=== PATIENT | male | born 1950 | race African-American/Black ===

== ENCOUNTER 2017-12-24 07:15 | Emergency (ER) | payer OTHER ==
[2017-12-24 08:48] LABS: Bilirubin Negative (Negative); Blood, Urine Negative (Negative); Clarity CLEAR (Clear); Glucose, Urine (Dipstick) Negative (Negative); Leukocyte Negative (Negative); Nitrite Negative (Negative); Protein, Urine (Dipstick) 30 mg/dL (Neg-Trace); Specific Gravity, Urine 1.011 (1.002-1.036); Urobilinogen 0.2 mg/dL (0.2-1.0)
[2017-12-24 08:50] LABS: Bacteria/HPF None Seen HPF (None Seen); Hyaline Casts/LPF 0-3 HYALINE CAST LPF (0-3 Hyaline); Pathc Cast-AUWi Flag 0.29 (0-2.49); Squamous Epithelial None Seen HPF (0-3); WBC/HPF 0-3 HPF (0-3)
[2017-12-24 09:09] LABS: ALT (SGPT) 25 U/L (8-55); AST (SGOT) 18 U/L (5-34); Alkaline Phosphatase 31 U/L (40-150); Anion Gap 15 mmol/L (10-20); BUN (Urea Nitrogen) 111 mg/dL (8.4-25.7); Bilirubin, Total 0.3 mg/dL (0.2-1.2); CK (CPK) 49 U/L (30-200); Calc. Creatinine Clearance 0 mL/min (70-130); Calcium 7.8 mg/dL (7.8-10.44); Carbon Dioxide 13 mmol/L (23-31); Chloride 114 mmol/L (98-107); Estimated GFR-MDRD 18; Globulin 2.1 g/dL (2.4-3.5); Glucose 197 mg/dL (80-115); Lipase 120 U/L (8-78); Potassium 6.5 mmol/L (3.5-5.1); Protein, Total 5.1 g/dL (5.8-8.1); Sodium 135 mmol/L (136-145)
[2017-12-24 09:13] LABS: CKMB 1.7 ng/mL (0-6.6)
[2017-12-24 09:29] LABS: Hemoglobin 4.6 g/dL (14.0-18.0); Mean Corpuscular HGB CONC 31.4 g/dL (32.0-36.0); Mean Corpuscular Hemoglobin 25.8 pg (27.0-31.0); Mean Corpuscular Volume 82.3 fl (80.0-94.0); Mean Platelet Volume 7.8 fL (7.4-10.4); Platelet Count 251 thou/uL (130-400); RBC Distribution Width 16.5 % (11.5-14.5); Red Blood Cell (RBC) Count 1.76 mill/uL (4.70-6.10); Reflex for Review?? YES; White Blood Cell (WBC) Count 21.1 thou/uL (4.8-10.8)
[2017-12-24 09:46] LABS: Band 1 % (5-11); Hypochromia SLIGHT = 6-15 cells (100X) (0-5/hpf); Lymphocytes 19 % (21-51); MDiff Complete? YES; Monocytes 1 % (0-10); Neutrophil 79 % (42-75); PLT Morphology Comment Appears Adequate; Polychromasia MODERATE = 3-4 cells (100X) (0-2/hpf)
[2017-12-24] MEDS ORDERED: Insulin Regular 300 UNITS/3 ML VIAL ONE (10:00)
[2017-12-24] MEDS ORDERED: Dextrose 50% Abboject 50 ML SYRINGE ONE (10:00)
[2017-12-24] MEDS ORDERED: Calcium Chloride 1 GM/10 ML Abboject SYRINGE ONE (10:00)
[2017-12-24] MEDS ORDERED: Albuterol Sulfate 2.5 mg/0.5 ml Neb ONE (10:13)
[2017-12-24] MEDS ORDERED: Albuterol Sulfate 2.5 mg/3 ml Neb ONE (10:13)
--- NOTE | 2017-12-24 10:18 | RAD ---
PORTABLE CHEST: Date: 12/24/17 HISTORY: Chest pain, hypotension. FINDINGS: Heart size appears slightly enlarged. Mediastinal structures are unremarkable. Lungs are clear of inf iltrates. There are no signs of failure. IMPRESSION: Mild cardiomegaly. POS: [facility]
[2017-12-24] MEDS ORDERED: Piperacillin/Tazobactam 3.375 GM VIAL ONE (10:55)
[2017-12-24] MEDS ORDERED: Sodium Chloride 0.9% 100 ML ONE (10:55)
[2017-12-24 11:18] LABS: PTT 57.7 SEC (22.9-36.1); Prothrombin Time 47.7 SEC (12.0-14.7)
[2017-12-24 11:20] LABS: INR-International Normal Ratio 4.8
[2017-12-24] MEDS ORDERED: Pantoprazole 80 MG, Admixture Fee 1 EACH in Sodium Chloride 0.9% 100 ML IVP SCH (11:45)
[2017-12-24] MEDS ORDERED: Pantoprazole 40 MG VIAL ONE (11:58)
[2017-12-24] MEDS ORDERED: Phytonadione 10 MG/ML AMP SLOW IVP SCH (12:00)
[2017-12-24] MEDS ORDERED: ADMIXTURE FEE IV SCH (12:00)
[2017-12-24] MEDS ORDERED: HUMAN PROTHROMBIN COMPLX IV SCH (12:00)
[2017-12-24] MEDS ORDERED: Vancomycin HCl 1 GM in Premix Bag 1 BAG IVPB SCH (12:00)
--- NOTE | 2017-12-24 13:04 | CT ---
CT OF ABDOMEN AND PELVIS PERFORMED WITHOUT CONTRAST ENHANCEMENT: Date: 12/24/17 HISTORY: Abdominal pain, hypotension, difficulty breathing. FINDINGS: The lung bases are clear of infiltrative process. The liver and spleen are normal in size. There is some increased attenuation associated with the sple en, which could represent calcification, possibly an old area of trauma, not felt to be of any acute significance. Pancreas and gallbladder regions are unremarkable. Right and left adrenal glands, and right and left kidneys are normal in size. The aorta is slightly e ctatic, but not aneurysmal. No evidence of bowel obstruction. There is some air within the subcutaneo us fat anteriorly, presumably this is on the basis of injections. CT of pelvis was performed without contrast enhancement. No evidence of adenopathy, mass, or free flu id. The appendix appears unremarkable. IMPRESSION: No acute abnormalities of the abdomen or pelvis. POS: [facility]
== END 2017-12-24 14:27 | disposition short-term general hospital (02) ==
LOC: ERS 07:15
DX: K92.2 Gastrointestinal hemorrhage, unspecified (principal); E87.5 Hyperkalemia; D64.9 Anemia, unspecified; I13.0 Hypertensive heart and chronic kidney disease with heart failure and stage 1 through stage 4 chronic kidney disease, or unspecified chronic kidney disease; E11.22 Type 2 diabetes mellitus with diabetic chronic kidney disease; N18.9 Chronic kidney disease, unspecified; I50.9 Heart failure, unspecified; K74.60 Unspecified cirrhosis of liver; E11.40 Type 2 diabetes mellitus with diabetic neuropathy, unspecified; Z79.82 Long term (current) use of aspirin; Z79.899 Other long term (current) drug therapy; Z79.4 Long term (current) use of insulin; Z79.01 Long term (current) use of anticoagulants
CPT/HCPCS: 36415; 36430; 71045; 74176; 80053; 81003; 81015; 82274; 82553; 83690; 84484; 85025; 85060; 85610; 85730; 86850; 86900; 86901; 87040; 87086; 93005; 94640; 94760; 96361; 96365; 96366; 96367; 96374; 96375; 96376; C9113; C9132; J1815; J2543; J3370; J3430; J7050; J7611; P9016

== ENCOUNTER 2018-02-03 19:51 | Emergency (ER) | payer OTHER ==
[2018-02-03 21:06] LABS: #Eosinphils 0.4 thou/uL (0.0-0.7); #Lymphocytes 1.4 thou/uL (1.20-3.40); #Monocytes 0.8 thou/uL (0.11-0.59); #Neutrophils 6.4 thou/uL (1.40-6.50); %Basophils 0.3 % (0.0-1.0); %Lymphocytes 15.7 % (21.0-51.0); %Monocytes 8.6 % (0.0-10.0); %Neutrophils 71.4 % (42.0-75.0); Hemoglobin 5.2 g/dL (14.0-18.0); Mean Corpuscular HGB CONC 32.6 g/dL (32.0-36.0); Mean Corpuscular Hemoglobin 27.2 pg (27.0-31.0); Mean Corpuscular Volume 83.5 fL (78.0-98.0); Mean Platelet Volume 7.5 fL (7.4-10.4); Platelet Count 217 thou/uL (130-400); RBC Distribution Width 15.8 % (11.5-14.5); Red Blood Cell (RBC) Count 1.91 mill/uL (4.70-6.10); White Blood Cell (WBC) Count 8.9 thou/uL (4.8-10.8)
[2018-02-03 21:15] LABS: ALT (SGPT) 24 U/L (8-55); AST (SGOT) 21 U/L (5-34); Albumin 3.4 g/dL (3.4-4.8); Alkaline Phosphatase 70 U/L (40-150); Anion Gap 14 mmol/L (10-20); BUN (Urea Nitrogen) 48 mg/dL (8.4-25.7); Bilirubin, Total 0.3 mg/dL (0.2-1.2); Calc. Creatinine Clearance 0 mL/min (70-130); Calcium 7.1 mg/dL (7.8-10.44); Carbon Dioxide 21 mmol/L (23-31); Chloride 110 mmol/L (98-107); Estimated GFR-MDRD 24; Globulin 2.7 g/dL (2.4-3.5); Glucose 180 mg/dL (80-115); Protein, Total 6.1 g/dL (5.8-8.1); Sodium 141 mmol/L (136-145)
[2018-02-03 21:30] LABS: INR-International Normal Ratio 2.3; PTT 40.6 SEC (22.9-36.1); Prothrombin Time 25.1 SEC (12.0-14.7)
[2018-02-03] MEDS ORDERED: Pantoprazole 80 MG, Admixture Fee 1 EACH in Sodium Chloride 0.9% 100 ML IVP SCH (21:30)
[2018-02-03] MEDS ORDERED: Pantoprazole 40 MG VIAL ONE (21:32)
--- NOTE | 2018-02-03 23:29 | CT ---
ABDOMEN CT WITHOUT CONTRAST PELVIC CT WITHOUT CONTRAST 02/03/18 COMPARISON: 12/24/17. HISTORY: Patient is here for GI bleed. TECHNIQUE: Abdomen and pelvic CT performed without contrast. Coronal reformatted images are submitted for interp retation. FINDINGS: ABDOMEN CT: Heart is enlarged. Minimal small bilateral pleural effusion with chronic changes in the lung bases. Limited evaluation of the solid organs by lack of IV contrast. Grossly, no solid organ abnormality. No gastrohepatic, retrocrural or periportal lymphadenopathy. There is evidence of fluid in the gallbladder fossa. No mesenteric mass, lymphadenopathy, free air or free fluid. Symmetric attenuation of the psoas muscles. Bilaterally, No obstructive uropathy. Limited evaluation of the alimentary canal. Gastric mucosal prominence likely due to inadequate diste ntion. Multiple normal caliber small bowel loops. Ileocecal junction is grossly unremarkable. Fecaliz ation of the terminal ileum likely due to incompetent ileocecal valve. Normal caliber appendix is not ed. The visualized colon is unremarkable. Evaluation is limited by lack of oral contrast. Stable hype rdensity in the spleen suggesting an area of hemorrhage or possible calcification PELVIC CT: No mass, lymphadenopathy, free air or free fluid. Unremarkable urinary bladder. Stable degenerative c hange of the lumbar spine. IMPRESSION: 1. No evidence of nephrolithiasis or obstructive uropathy. 2. Normal caliber appendix. 3. No evidence of colonic obstruction. Given patient's history, consider possible nuclear medici ne GI bleed scan. 4. Nonspecific fluid in the gallbladder fossa. Correlate clinically. Consider gallbladder ultras ound if clinically warranted. POS: [facility]
--- NOTE | 2018-02-04 12:46 | EKG ---
Test Reason : Blood Pressure : / mmHG Vent. Rate : 073 BPM Atrial Rate : 073 BPM P-R Int : 154 ms QRS Dur : 094 ms QT Int : 428 ms P-R-T Axes : 000 -04 -06 degrees QTc Int : 471 ms Normal sinus rhythm Left ventricular hypertrophy with repolarization abnormality Abnormal ECG Leftward axis Confirmed by SANIA APPIAH, VALERIO James ([id number]), fashion editor ORLANDO ESCAMILLA ([id number]) on 02/04/2018 12:45:55 PM Referred By: Confirmed By:VALERIO LUI MD
== END 2018-02-04 01:45 | disposition short-term general hospital (02) ==
LOC: ERS 19:51
DX: K92.2 Gastrointestinal hemorrhage, unspecified (principal); D64.9 Anemia, unspecified; I13.0 Hypertensive heart and chronic kidney disease with heart failure and stage 1 through stage 4 chronic kidney disease, or unspecified chronic kidney disease; E11.22 Type 2 diabetes mellitus with diabetic chronic kidney disease; N18.9 Chronic kidney disease, unspecified; I50.9 Heart failure, unspecified; E11.40 Type 2 diabetes mellitus with diabetic neuropathy, unspecified; Z79.899 Other long term (current) drug therapy; Z79.4 Long term (current) use of insulin; Z79.01 Long term (current) use of anticoagulants; I25.10 Atherosclerotic heart disease of native coronary artery without angina pectoris
CPT/HCPCS: 36430; 74176; 80053; 83690; 83735; 85025; 85610; 85730; 86850; 86900; 86901; 93005; 96365; 96366; 96376; C9113; J7050; P9016

== ENCOUNTER 2018-03-10 06:41 | Inpatient (IN) | payer OTHER ==
[2018-03-10 07:20] LABS: #Eosinphils 0.8 thou/uL (0.0-0.7); #Lymphocytes 1.9 thou/uL (1.20-3.40); #Monocytes 0.7 thou/uL (0.11-0.59); #Neutrophils 6.1 thou/uL (1.40-6.50); %Basophils 0.3 % (0.0-1.0); %Eosinophils 8.3 % (0.0-10.0); %Lymphocytes 19.8 % (21.0-51.0); %Neutrophils 64.7 % (42.0-75.0); Hemoglobin 9.4 g/dL (14.0-18.0); Mean Corpuscular HGB CONC 32.2 g/dL (32.0-36.0); Mean Corpuscular Hemoglobin 29.3 pg (27.0-31.0); Mean Corpuscular Volume 91.2 fL (78.0-98.0); Mean Platelet Volume 7.9 fL (7.4-10.4); Platelet Count 191 thou/uL (130-400); RBC Distribution Width 16.2 % (11.5-14.5); Red Blood Cell (RBC) Count 3.21 mill/uL (4.70-6.10); White Blood Cell (WBC) Count 9.4 thou/uL (4.8-10.8)
[2018-03-10 07:28] LABS: INR-International Normal Ratio 1.1; PTT 31.5 SEC (22.9-36.1); Prothrombin Time 13.8 SEC (12.0-14.7)
[2018-03-10 07:45] LABS: ALT (SGPT) 27 U/L (8-55); AST (SGOT) 23 U/L (5-34); Albumin 3.8 g/dL (3.4-4.8); Alkaline Phosphatase 68 U/L (40-150); Anion Gap 18 mmol/L (10-20); BUN (Urea Nitrogen) 41 mg/dL (8.4-25.7); Bilirubin, Total 0.8 mg/dL (0.2-1.2); CK (CPK) 125 U/L (30-200); Calc. Creatinine Clearance 0 mL/min (70-130); Calcium 7.8 mg/dL (7.8-10.44); Carbon Dioxide 19 mmol/L (23-31); Chloride 112 mmol/L (98-107); Estimated GFR-MDRD 29; Globulin 2.9 g/dL (2.4-3.5); Glucose 90 mg/dL (80-115); Lipase 83 U/L (8-78); Potassium 3.9 mmol/L (3.5-5.1); Protein, Total 6.7 g/dL (5.8-8.1); Sodium 145 mmol/L (136-145)
[2018-03-10] MEDS ORDERED: Pantoprazole 40 MG VIAL ONE (08:18)
[2018-03-10 08:36] LABS: Bilirubin Negative (Negative); Blood, Urine Negative (Negative); Clarity CLEAR (Clear); Glucose, Urine (Dipstick) Negative (Negative); Leukocyte Negative (Negative); Nitrite Negative (Negative); Protein, Urine (Dipstick) 100 mg/dL (Neg-Trace); Urobilinogen 0.2 mg/dL (0.2-1.0); pH, Urine 7.5 (5.0-9.0)
[2018-03-10 08:38] LABS: Bacteria/HPF None Seen HPF (None Seen); Hyaline Casts/LPF 0-3 HYALINE CAST LPF (0-3 Hyaline); RBC/HPF None Seen HPF (0-3); Squamous Epithelial None Seen HPF (0-3); WBC/HPF None Seen HPF (0-3)
--- NOTE | 2018-03-10 08:45 | RAD ---
CHEST 1 VIEW: Date: 03/10/18 HISTORY: 67-year-old male with abdominal pain, upper GI bleed, black stools. COMPARISON: 12/24/17. FINDINGS: Cardiomegaly with mid bilateral vascular congestion and possibly mild interstitial edema. Slight blun ting of the costophrenic angles suggesting small effusions. IMPRESSION: Interval development of some bilateral vascular congestion, mild interstitial edema, and small pleura l effusions with cardiomegaly since 12/24/17. POS: [facility]
[2018-03-10 10:55] LABS: Troponin I 0.037 ng/mL (< 0.028)
[2018-03-10] MEDS ORDERED: Octreotide Acetate 50 MCG/ML AMP SC SCH (12:00)
[2018-03-10 12:31] VITALS: BMI 25.4
--- NOTE | 2018-03-10 13:17 | CON ---
DATE OF CONSULTATION: 03/10/2018 REASON FOR CONSULTATION: Melena. CONSULTING PHYSICIAN: Dr. Lloyd Bartlett. HISTORY OF PRESENT ILLNESS: Patient is a 67-year-old -[place] male with past medical history of chronic kidney disease with arteriovenous fistula placement (but not on hemodialysis yet), carpal tunnel syndrome, congestive heart failure, diabetes, hypertension, coronary artery disease, chronic hepatitis C (naive to treatment) and cirrhosis with the sequelae of ascites, presenting with complain ts of melena. He states that he has been having intermittent black stools that have been present for the last 2-3 months characterized primarily as 1-2 solid black bowel movements per day. With this m ost recent episode, he said that he was having normal stooling pattern until approximately 1 week ago when he again started having these solid black bowel movements. They were not associated with iron supplementation, taking Pepto-Bismol or dietary food intake. This was also associated with increased suprapubic abdominal pain characterized as a cramping type pain, nonradiating, intermittent and woul d reach a severity of approximately 5/10. There were no clear exacerbating factors, but it was allev iated with a medication that he was given at the hospital emergency room. Otherwise, he currently de nies any nausea, vomiting, fevers, chills, shortness of breath, chest pain, odynophagia, dysphagia, h ematemesis, hematochezia, or weight loss. Of note, he has been evaluated on two separate occasions in this hospital with very similar complaint s of darker colored stools and anemia. He was subsequently transferred to the [facility] in [place] for further evaluation given his incarcerated status. Records from those h ospitalizations are not available for review at this time; however, the patient did state that they d id go down with a camera and looked at his stomach and said that "everything was fine. They found no thing." REVIEW OF SYSTEMS: A 10-category review of systems was obtained with all responses negative except f or the pertinent positives as listed in the HPI. PAST MEDICAL HISTORY: As per HPI. PAST SURGICAL HISTORY: Kidney biopsy, arterial thrombectomy, arteriovenous fistula placement. FAMILY HISTORY: Denies any GI malignancies. SOCIAL HISTORY: Denies any alcohol, tobacco or illicit drug use. OUTPATIENT MEDICATIONS: Reviewed. ALLERGIES: No known drug allergies. PHYSICAL EXAMINATION: VITAL SIGNS: Pulse 79, blood pressure 174/90, temperature 98 degrees, respiratory rate 18, satting 9 8% on room air. GENERAL: Patient is lying in bed in no acute distress. Alert and oriented x4. NECK: Supple. No JVD noted. CARDIOVASCULAR: Regular rate and rhythm, no discernible murmurs, gallops or rubs. However, he did h ave a loud P2 sound on auscultation. RESPIRATORY: Clear to auscultation bilaterally with no discernible wheezes or rales, although there may have been some diminished breath sounds in the right lower lobe. ABDOMEN: Normoactive bowel sounds, soft, mild to moderate abdominal distention, mild tenderness to p alpation in the suprapubic region. EXTREMITIES: Trace bilateral lower extremity edema extending to mid babb. No cyanosis or clubbing. LABORATORY DATA: CBC with a white blood cell count of 9.4, hemoglobin 9.4, hematocrit 29.2, platelet s 191. Chemistry with sodium of 145, potassium 3.9, chloride 112, CO2 of 19, BUN 41, creatinine 2.65 , glucose 90, AST 23, ALT 27, alkaline phosphatase 68, total bilirubin 0.8, lipase 83, INR 1.1. Trop onin 0.03. BNP 1305. IMAGING DATA: Chest x-ray obtained on 03/10/2018 showed cardiomegaly with mild bilateral vascular co ngestion and possibly mild interstitial edema, slight blunting of the costophrenic angle suggesting s mall effusions. ASSESSMENT AND PLAN: The patient is a 67-year-old -[place] male with past medical history of chronic kidney disease status post AVF placement, carpal tunnel, congestive heart failure, diabetes, hypertension, coronary artery disease, chronic hepatitis C and cirrhosis with sequelae of ascites, p resenting with possible upper gastrointestinal bleeding. UPPER GI BLEEDING: The patient is presenting with a history of intermittent black colored stools thang t have been present for the last 2-3 months and has been noted to be associated with significant anem ia with prior evaluations in our ER. He was ultimately transferred to [facility] in [place] for evaluati on of the bleeding source with no records available for review; however, with his history of cirrhosi s, the current differential could include variceal bleeding, portal hypertensive gastropathy, arterio venous malformation, Dieulafoy lesion, peptic ulcer disease and/or GI malignancy (much less likely gi missael recent instrumentation per patient). However, upon further evaluation of his current labs and im aging, his current clinical picture is consistent with a possible congestive heart failure exacerbati on as evidenced by the interstitial edema on chest x-ray and the significantly elevated BNP with a lo ud P2 sound auscultated on cardiac exam, this is also concerning for congestive heart failure exacerb ation. Given the fact that he is having one solid black bowel movement per day, he is not necessaril y indicative of brisk upper gastrointestinal bleeding, so correction of his cardiac issues may take p riority over his GI issues for the current time. RECOMMENDATIONS: 1. We would continue to trend hemoglobin and hematocrit and transfuse as necessary to maintain an he moglobin and hematocrit of 7/21. 2. Continue to monitor clinically for signs of active gastrointestinal bleeding. 3. We would stabilize the patient's cardiac status with possible congestive heart failure exacerbati on prior to any endoscopic procedure. 4. Would make patient n.p.o. at midnight tonight for possible endoscopy tomorrow. 5. We would continue PPI and octreotide drips in a patient with cirrhosis and possible upper gastroi ntestinal bleeding. 6. Would place patient on ceftriaxone 1 gram daily as part of prophylaxis for infection in a cirrhot ic patient with GI bleeding. 7. Would consider paracentesis if the patient's abdominal distention increases. We will continue to follow. Please call with any questions.
[2018-03-10] MEDS: Octreotide Acetate 1,250 MCG in Sodium Chloride 0.9% 250 ML 250 ML IVPB SCH (13:23)
[2018-03-10] MEDS ORDERED: Dextrose 50% Abboject 50 ML SYRINGE SLOW IVP PRN (13:35)
[2018-03-10] MEDS ORDERED: Dextrose 5% in Water 1,000 ML IV PRN (13:35)
[2018-03-10] MEDS ORDERED: Insulin Regular 300 UNITS/3 ML VIAL SC PRN (13:35)
[2018-03-10] MEDS ORDERED: Nitroglycerin 0.4 MG TAB (25 Tab Bottle) PO PRN (13:35)
[2018-03-10] MEDS: cefTRIAXone\\ROCEPHIN 1 GM in Sodium Chloride 0.9% 100 ML IVPB SCH (13:37)
[2018-03-10 13:39] LABS: Hemoglobin 9.2 g/dL (14.0-18.0)
[2018-03-10] MEDS ORDERED: Ondansetron ODT 4 MG TAB PO PRN (13:40)
[2018-03-10] MEDS ORDERED: Calcium Carbonate 500 MG ChewTAB PO PRN (13:40)
[2018-03-10] MEDS ORDERED: Ondansetron HCl/PF 4 MG/2 ML Vial IVP PRN (13:40)
[2018-03-10] MEDS ORDERED: Mag-Al 1200 mg/1200 mg/30 ML UDCUP PO PRN (13:40)
--- NOTE | 2018-03-10 13:57 | HP ---
DATE OF ADMISSION: 03/10/2018 PRIMARY CARE PHYSICIAN: The patient is an inmate. CHIEF COMPLAINT: Abdominal discomfort with black stool of 1-week duration. HISTORY OF PRESENT ILLNESS: The patient is a 67-year-old male with chronic hepatitis C with cirrhosis, diabetes mellitus type 2, hypertension and recent hospitalization for GI bleeding at [facility] and was brought in to [facility] with the above symptoms. The patient has epigastric discomfort that has been ongoing for the last 4 days or so. It is moderate in intensity without any aggravating or relieving factor. He felt nauseous; however, denies any vomiting. Over the last week or so, the patient noticed dark stool 1-2 times a day. He also felt lightheaded, dizzy; however, denies any syncope. He denies any nausea or vomiting. He lost his appetite and has lost approximately 2 pounds in the last week. He recently had endoscopies done at [facility]. He is on anticoagulation for unknown reason. He states that he was on heparin that was changed to Coumadin 1-2 days ago. He is currently in [facility]. Please note that patient is a poor historian and not much information is available from the patient. PAST MEDICAL HISTORY: 1. Chronic hepatitis C with cirrhosis. 2. Chronic kidney disease. 3. Hypertension. 4. Coronary artery disease. 5. Congestive heart failure, ejection fraction unknown. 6. Carpal tunnel syndrome. 7. Chronic anticoagulation for unclear reason. PAST SURGICAL HISTORY: 1. Kidney biopsy. 2. Arterial thrombectomy to the leg in 12/2017, details unavailable. ALLERGIES: No known drug allergies. CURRENT HOME MEDICATIONS: To be verified with the facility. He does not remember any of his medications. MEDICATION ADMINISTERED AT [facility]: IV fluid with Protonix and 1 unit of PRBC. SOCIAL HISTORY: The patient denies any smoking, alcohol or drug use. FAMILY HISTORY: Negative for heart disease or GI malignancy. REVIEW OF SYSTEMS: The following complete review of systems was negative, unless otherwise mentioned in the HPI or below: Constitutional: Weight loss or gain, ability to conduct usual activities. Skin: Rash, itching. Eyes: Double vision, pain. ENT/Mouth: Nose bleeding, neck stiffness, pain, tenderness. Cardiovascular: Palpitations, dyspnea on exertion, orthopnea. Respiratory: Shortness of breath, wheezing, cough, hemoptysis, fever or night sweats. Gastrointestinal: Poor appetite, abdominal pain, heartburn, nausea, vomiting, constipation, or diarrhea. Genitourinary: Urgency, frequency, dysuria, nocturia. Musculoskeletal: Pain, swelling. Neurologic/Psychiatric: Anxiety, depression. Allergy/Immunologic: Skin rash, bleeding tendency. PHYSICAL EXAMINATION: VITAL SIGNS: On ER arrival at [facility] showed temperature 97.7, blood pressure 183/81, heart rate 73, respiration of 18, O2 saturation of 99% on room air. His pain was 5/10. GENERAL: A 67-year-old male in mild distress due to abdominal discomfort. HEENT: Head atraumatic, normocephalic. Sclerae are anicteric. Moist mucous membrane. No oral lesion. NECK: Supple. No JVD appreciated. No carotid bruit. LUNGS: Clear to auscultation bilaterally. No wheezing, rales or rhonchi. HEART: S1, S2 present. Regular rate and rhythm. No murmur, rubs or gallops appreciated. ABDOMEN: Soft, mild epigastric tenderness. No rebound, guarding. No costovertebral angle tenderness. EXTREMITIES: No edema or calf tenderness. NEUROLOGIC: Grossly nonfocal. Moves all 4 extremities. PSYCHIATRY: Alert, awake, oriented x3. SKIN: Warm and dry. LYMPH NODES: No palpable lymph nodes in the neck. PERIPHERAL VASCULAR: Radial pulses palpable bilaterally. MUSCULOSKELETAL: No joint swelling or tenderness. LABORATORY FINDINGS: The patient's hemoglobin at [facility] was 8. Prior to ER visit, it was 7. He received 1 unit packed red blood cells. Stool for occult blood was positive. WBC was 9.1 with platelet count of 181,000. Sodium 141, potassium 3.7, chloride 111, bicarbonate 20, BUN 47, creatinine 2.6 , albumin 3.6, total bilirubin 0.6, ALT 31, AST 27, lipase was 68. INR 1.1. EKG by my review showed sinus rhythm with left ventricular hypertrophy. IMAGING: Chest x-ray by my review showed mild pulmonary vascular congestion with small pleural effusion. IMPRESSION: 1. Gastrointestinal bleeding/Abdominal discomfort with Acute blood loss anemia , status post 1 unit of packed red blood cells at [facility]. His last H&H is 9.1. The patient has a history of cirrhosis with chronic hepatitis C. He was recently hospitalized at [facility] for gastrointestinal bleeding and underwent endoscopies. He does not remember the details and the findings of endoscopies. We will start him on octreotide drip, Protonix drip with empiric antibiotics. We will monitor H&H closely. Consult Gastroenterology. We will try to obtain records. We will check orthostatic vitals. We will hold IV fluids for now due to congestive heart failure. 2. Congestive heart failure, ejection fraction unknown. Echocardiogram will be done. We will start him on gentle diuretics. He is in congestive heart failure exacerbation. His BNP is around 1300. 3. Elevated troponins, probably secondary to demand ischemia. The patient denies any chest pain. 4. Chronic kidney disease stage 4. We will avoid nephrotoxic agents. 5. History of chronic hepatitis C with cirrhosis. His platelets are normal. Albumin is 3.8. There is no significant coagulopathy. 6. Chronic anticoagulation of unclear etiology. We will try to obtain records. 7. Coronary artery disease, details unavailable. 8. History of arterial thrombectomy of the leg in 12/2017. 9. Diabetes mellitus type 2. We will start him on sliding scale. 10. Hypertension. We will start him on p.r.n. medications. We will try to obtain accurate medication list. Plan of care was discussed with the patient in detail. He stated understanding. MTDD
[2018-03-10] MEDS: hydrALAZINE 25 MG TAB PO SCH ×2 (15:04→20:20)
[2018-03-10] MEDS: Furosemide 40 MG/4 ML VIAL SLOW IVP SCH (15:05)
[2018-03-10] MEDS: Carvedilol 6.25 MG TAB PO SCH (16:19)
[2018-03-10] MEDS: Insulin Regular 300 UNITS/3 ML VIAL SC PRN (16:19)
[2018-03-10 18:30] LABS: Hemoglobin 9.6 g/dL (14.0-18.0)
[2018-03-10] MEDS: Amlodipine 5 MG TAB PO SCH (20:19)
[2018-03-10] MEDS ORDERED: Carvedilol 6.25 MG TAB PO SCH (21:00)
[2018-03-10] MEDS: Pantoprazole 80 MG, Admixture Fee 1 EACH in Sodium Chloride 0.9% 100 ML IVP SCH (21:44)
[2018-03-11] MEDS: Furosemide 40 MG/4 ML VIAL SLOW IVP SCH ×2 (05:15→15:00)
[2018-03-11 06:09] LABS: Anion Gap 19 mmol/L (10-20); BUN (Urea Nitrogen) 32 mg/dL (8.4-25.7); Calc. Creatinine Clearance 25 mL/min (70-130); Calcium 7.7 mg/dL (7.8-10.44); Carbon Dioxide 12 mmol/L (23-31); Chloride 112 mmol/L (98-107); Estimated GFR-MDRD 28; Glucose 79 mg/dL (80-115); Magnesium 2.2 mg/dL (1.6-2.6); Phosphorus 4.2 mg/dL (2.3-4.7); Potassium 4.5 mmol/L (3.5-5.1); Sodium 138 mmol/L (136-145)
[2018-03-11 06:11] LABS: #Eosinphils 0.6 thou/uL (0.0-0.7); #Lymphocytes 1.3 thou/uL (1.20-3.40); #Monocytes 0.8 thou/uL (0.11-0.59); #Neutrophils 7.3 thou/uL (1.40-6.50); %Basophils 0.2 % (0.0-1.0); %Eosinophils 6.4 % (0.0-10.0); %Lymphocytes 12.9 % (21.0-51.0); %Monocytes 7.7 % (0.0-10.0); %Neutrophils 72.8 % (42.0-75.0); Hemoglobin 8.7 g/dL (14.0-18.0); Mean Corpuscular HGB CONC 32.9 g/dL (32.0-36.0); Mean Corpuscular Hemoglobin 30.3 pg (27.0-31.0); Mean Corpuscular Volume 91.9 fL (78.0-98.0); Mean Platelet Volume 7.7 fL (7.4-10.4); Platelet Count 175 thou/uL (130-400); RBC Distribution Width 15.9 % (11.5-14.5); Red Blood Cell (RBC) Count 2.87 mill/uL (4.70-6.10)
[2018-03-11] MEDS: Pantoprazole 80 MG, Admixture Fee 1 EACH in Sodium Chloride 0.9% 100 ML IVP SCH ×2 (07:53→19:02)
[2018-03-11] MEDS: hydrALAZINE 25 MG TAB PO SCH ×3 (09:28→20:10)
[2018-03-11] MEDS: Amlodipine 5 MG TAB PO SCH ×2 (09:30→20:11)
[2018-03-11] MEDS: Carvedilol 6.25 MG TAB PO SCH ×2 (09:31→17:03)
[2018-03-11] MEDS: Loratadine 10 MG TAB PO SCH (09:32)
--- NOTE | 2018-03-11 12:06 | PDOC.PN ---
- Subjective Encounter Start Date: 03/11/18 Encounter Start Time: 10:00 Patient seen and examined for GI bleeding. No new melena/hematochezia. No new complaints. No overnight events - Objective Resuscitation Status: Resuscitation Status FULL:Full Resuscitation MAR Reviewed: Yes Vital Signs & Weight: Vital Signs (12 hours) Temp Pulse Resp BP BP Pulse Ox 03/11/18 11:46 98.5 F 65 16 143/68 H 98 03/11/18 09:31 154/73 H 03/11/18 09:30 72 154/74 H 03/11/18 09:28 72 154/73 H 03/11/18 07:41 98.4 F 72 18 164/78 H 100 03/11/18 04:04 98.8 F 72 20 146/69 H 97 Weight Weight 149 lb 4.8 oz I&O: 03/10/18 03/11/18 03/12/18 06:59 06:59 06:59 Intake Total 1137 Output Total 1750 Balance -613 Result Diagrams: 03/11/18 05:42 03/11/18 05:33 Additional Labs: Accuchecks 03/11/18 03/11/18 03/10/18 10:57 05:59 20:27 POC Glucose 149 H 104 283 H 03/10/18 16:11 POC Glucose 273 H Phys Exam - Physical Examination Constitutional: NAD Respiratory: no wheezing, no rales, no rhonchi, clear to auscultation bilateral Cardiovascular: RRR, no significant murmur, no rub no heaves/pulsations Gastrointestinal: soft, non-tender, no distention, positive bowel sounds Musculoskeletal: no edema Neurological: non-focal, normal sensation, moves all 4 limbs Psychiatric: normal affect, A&O x 3 Dx/Plan - Plan DVT proph w/SCDs IMPRESSION: 1. Gastrointestinal bleeding/Abdominal discomfort with Acute blood loss anemia , status post 1 unit of packed red blood cells at [place]. Cont Protonix and Octreotide drip Monitor HH Cont clear liqd Await records from [facility] 2. Congestive heart failure, ejection fraction unknown. Await Echocardiogram Cont diuretics 3. Elevated troponins, probably secondary to demand ischemia. No CP 4. Chronic kidney disease stage 4. Avoid nephrotoxic agents. 5. History of chronic hepatitis C with cirrhosis. 6. Chronic anticoagulation of unclear etiology. Warfarin on hold 7. Coronary artery disease. 8. History of arterial thrombectomy of the leg in 12/2017. 9. Diabetes mellitus type 2. Cont sliding scale 10. Hypertension. Review of Systems - Review of Systems Respiratory: negative: Cough, Dry, Shortness of Breath, Hemoptysis, SOB with Excertion, Pleuritic Pain, Sputum, Wheezing Cardiovascular: negative: chest pain, palpitations, orthopnea, paroxysmal nocturnal dyspnea, edema, light headedness, other - Medications/Allergies Allergies/Adverse Reactions: Allergies Allergy/AdvReac Type Severity Reaction Status Date / Time No Known Allergies Allergy Verified 03/10/18 11:47 Medications: Current Medications Acetaminophen (Tylenol) 650 mg PO Q8H PRN PRN Reason: Headache/Fever or Pain Al Hydroxide/Mg Hydroxide (Maalox) 30 ml PO Q6H PRN PRN Reason: Heartburn or Indigestion Amlodipine Besylate (Norvasc) 5 mg PO BID [facility] Last Admin: 03/11/18 09:30 Dose: 5 mg Calcium Carbonate (Tums) 1,000 mg PO Q4H PRN PRN Reason: Heartburn or Indigestion Carvedilol (Coreg) 6.25 mg PO BID-[facility] Last Admin: 03/11/18 09:31 Dose: 6.25 mg Dextrose/Water (Dextrose 50%) 25 gm SLOW IVP PRN PRN PRN Reason: Hypoglycemia Furosemide (Lasix) 40 mg SLOW IVP 0600,1400 [facility] Last Admin: 03/11/18 05:15 Dose: 40 mg Glucagon (Glucagon) 1 mg IM PRN PRN PRN Reason: Hypoglycemia Hydralazine HCl (Apresoline) 50 mg PO TID [facility] Last Admin: 03/11/18 09:28 Dose: 50 mg Pantoprazole Sodium 80 mg/Miscellaneous Medication 1 each/ Sodium Chloride 100 mls @ 10 mls/hr IVP INF [facility] Last Admin: 03/11/18 07:53 Dose: 100 mls Octreotide Acetate 1,250 mcg/ (Sodium Chloride) 251.25 mls @ 5.02 mls/hr IVPB INF [facility] PRN Reason: 25 MCG/HR Last Admin: 03/10/18 13:23 Dose: 251.25 mls Ceftriaxone Sodium 1 gm/ (Sodium Chloride) 100 mls @ 0 mls/hr IVPB Q24HR [facility] Last Admin: 03/10/18 13:37 Dose: 100 mls Dextrose/Water (D5w) 1,000 mls @ 0 mls/hr IV .Q0M PRN; As Directed PRN Reason: Hypoglycemia Insulin Human Regular (Humulin R) 0 units SC .MILD SLIDING SCALE PRN PRN Reason: Mild Correctional Scale Last Admin: 03/10/18 16:19 Dose: 4 unit Insulin Human Regular (Humulin R) 0 units SC .BEDTIME SLIDING SC PRN PRN Reason: Bedtime Correctional Scale Last Admin: 03/10/18 22:57 Dose: 3 unit Lactulose (Lactulose) 10 gm PO DAILY [facility] Last Admin: 03/11/18 09:26 Dose: 10 gm Loratadine (Claritin) 10 mg PO DAILY [facility] Last Admin: 03/11/18 09:32 Dose: 10 mg Nitroglycerin (Nitrostat) 0.4 mg PO Q5MIN PRN PRN Reason: Chest Pain Ondansetron HCl (Zofran Odt) 4 mg PO Q6H PRN PRN Reason: Nausea/Vomiting Ondansetron HCl (Zofran) 4 mg IVP Q6H PRN PRN Reason: Nausea/Vomiting Sodium Chloride (Flush - Normal Saline) 10 ml IVF PRN PRN PRN Reason: Saline Flush Last Admin: 03/10/18 15:06 Dose: 10 ml
[2018-03-11] MEDS: cefTRIAXone\\ROCEPHIN 1 GM in Sodium Chloride 0.9% 100 ML IVPB SCH (12:31)
--- NOTE | 2018-03-11 12:50 | PRG ---
DATE OF SERVICE: 03/11/2018 REASON FOR CONSULTATION: Melena. SUBJECTIVE: Overnight, the patient did well with no problems or events. He denies any further episodes of melenic stools, nor did he have any hematochezia or hematemesis. Currently, denies any nausea, vomiting, fevers, chills, abdominal pain, diarrhea or constipation. OBJECTIVE: VITAL SIGNS: Temperature 98.5, pulse 65, blood pressure 143/68, respiratory rate 16, satting 98% on 1 liter nasal cannula. GENERAL: The patient lying in bed in no acute distress. Alert and oriented x4. CARDIOVASCULAR: Regular rate and rhythm. RESPIRATORY: Clear to auscultation bilaterally. ABDOMEN: Normoactive bowel sounds, soft, nontender, nondistended. EXTREMITIES: No cyanosis, clubbing or edema. LABORATORY DATA: CBC with white blood cell count of 10, hemoglobin 8.7, hematocrit 26.4, and platelets 175. Chemistry with sodium 138, potassium 4.5, chloride 112, CO2 12, BUN 32, creatinine 2.72, glucose 79. IMAGING DATA: No current GI imaging is available for review. ASSESSMENT AND PLAN: Patient is a 67-year-old -[place] male with past medical history of chronic kidney disease, carpal tunnel syndrome, congestive heart failure, diabetes, hypertension, coronary artery disease, chronic hepatitis C (naive to treatment) and cirrhosis with sequelae of ascites, presenting with possible upper gastrointestinal bleeding. Upper GI bleeding: The patient initially presented with a history of intermittent black colored stools that had been present for the last 2-3 months and had been associated with significant anemia with prior evaluations in ER. On his prior evaluations, he had ultimately been transferred to [facility] in [place] for further evaluation of his anemia and per patient had undergone upper endoscopy at that institution; however, he could not relate any of the findings from these procedures. Overnight, he is doing well with no further events of melena. Upon comparison of his H&H, it is somewhat downtrending but can be related to the hemodilutional effect from medications he is getting. I spoke with the patient this morning about proceeding with possible upper endoscopy and he would like to hold off at this time, but rather continue to monitor his hemoglobin and hematocrit and if continues to decrease, then proceed with endoscopic management at that time. RECOMMENDATIONS: 1. We would continue to trend hemoglobin and hematocrit and transfuse as necessary to maintain an hemoglobin and hematocrit of 7/21. 2. Continue to monitor clinically for signs of active gastrointestinal bleeding. 3. Continue stabilization of the patient's cardiac status prior to endoscopic evaluation. 4. We would place the patient on a clear liquid diet today. Tentatively will plan for EGD tomorrow if the patient's H/H continues to downtrend or if he has any additional melenic bowel movements. 5. We would continue both PPI and octreotide drips. 6. We will continue ceftriaxone 1 gram daily as part of prophylaxis for infection in a cirrhotic patient with gastrointestinal bleeding. 7. We would consider paracentesis if patient's abdominal distension increases. We will continue to follow. Please call with any questions. MTDD
[2018-03-11] MEDS: Acetaminophen 325 MG TAB PO PRN (20:11)
[2018-03-12] MEDS: Octreotide Acetate 1,250 MCG in Sodium Chloride 0.9% 250 ML 250 ML IVPB SCH (04:11)
[2018-03-12] MEDS: Pantoprazole 80 MG, Admixture Fee 1 EACH in Sodium Chloride 0.9% 100 ML IVP SCH (04:11)
[2018-03-12] MEDS: Furosemide 40 MG/4 ML VIAL SLOW IVP SCH ×2 (05:58→14:45)
[2018-03-12] MEDS: Acetaminophen 325 MG TAB PO PRN ×2 (06:13→18:26)
[2018-03-12] MEDS: Carvedilol 6.25 MG TAB PO SCH ×2 (08:19→16:00)
[2018-03-12] MEDS: Pantoprazole 40 MG VIAL IVP SCH ×2 (08:19→20:02)
[2018-03-12] MEDS: hydrALAZINE 25 MG TAB PO SCH ×3 (08:20→20:02)
[2018-03-12] MEDS: Amlodipine 5 MG TAB PO SCH (08:20)
[2018-03-12] MEDS: Loratadine 10 MG TAB PO SCH (08:20)
[2018-03-12] MEDS: cefTRIAXone\\ROCEPHIN 1 GM in Sodium Chloride 0.9% 100 ML IVPB SCH (12:57)
--- NOTE | 2018-03-12 13:36 | PRG ---
DATE OF SERVICE: 03/12/2018 REASON FOR CONSULTATION: Melena. SUBJECTIVE: Overnight, the patient did well with no acute events or problems. He denies any further episodes of melenic stools, nor did he have any hematochezia or hematemesis. At the current point, he denies any nausea or vomiting, fevers, chills, abdominal pain, diarrhea or constipation. Upon que stioning the patient today, he states that he does not want to stay in the hospital anymore and would be rather transferred back to shelter. OBJECTIVE: VITAL SIGNS: Temperature 98.3, pulse 70, blood pressure 144/68, respiratory rate 16, satting 96% on room air. GENERAL: The patient is lying in bed in no acute distress. Alert and oriented x4. CARDIOVASCULAR: Regular rate and rhythm. RESPIRATORY: Clear to auscultation bilaterally. ABDOMEN: Normoactive bowel sounds, soft, nontender, nondistended. EXTREMITIES: No cyanosis, clubbing or edema. LABORATORY DATA: No current studies are available for review. IMAGING DATA: No current GI imaging is available for review. ASSESSMENT AND PLAN: Patient is a 67-year-old -Italian male with past medical history of chr onic kidney disease, carpal tunnel syndrome, congestive heart failure, diabetes, hypertension, altman ry artery disease, chronic hepatitis C (naive to treatment) and cirrhosis with sequelae of ascites, p resenting with possible upper gastrointestinal bleeding. Upper gastrointestinal bleeding: The patient initially presented with a history of intermittent patrick k colored stools that has been present for the last 2-3 months and had been associated with significa nt anemia with prior evaluations in the [facility] ER. On these prior evaluations, he had ultimate ly been transferred to [facility] in [place] for further evaluation and had undergone recent upper endosc opy at that institution; however, he could not relate any of the findings from these procedures and r ecords are not available for review. During the course of this hospitalization, he has not had any f urther episodes of black colored stools, nor has he had a significant derangement in his hemoglobin a nd hematocrit that would be indicative of active gastrointestinal bleeding. I spoke with the patient this morning about proceeding with the possible upper endoscopy and at this point he would not like to proceed with any invasive evaluation, but would rather be transferred back to snf. RECOMMENDATIONS: 1. We would continue to trend hemoglobin and hematocrit and transfuse as necessary to maintain hemog lobin and hematocrit of 7/21. 2. Continue to monitor clinically for signs of active gastrointestinal bleeding. 3. We would continue stabilization to the patient's cardiac status. 4. We would transfer patient to pantoprazole 40 mg daily and discontinuation of the octreotide drip. 5. Would continue antibiotic prophylaxis for possible upper gastrointestinal bleeding in a patient w ith cirrhosis with total duration of the antibiotics for 5 days (could discharge the patient with Cip ro). At this time, the patient is refusing any endoscopic intervention and would rather be transferred [facility] to snf without further management. Given this patient's preference, we will sign off at this time . Please call with any additional questions.
[2018-03-12 13:43] LABS: Lactic Acid 2.6 mmol/L (0.5-2.2)
[2018-03-12 13:44] LABS: Anion Gap 16 mmol/L (10-20); BUN (Urea Nitrogen) 35 mg/dL (8.4-25.7); Calc. Creatinine Clearance 18 mL/min (70-130); Calcium 7.9 mg/dL (7.8-10.44); Carbon Dioxide 20 mmol/L (23-31); Chloride 108 mmol/L (98-107); Estimated GFR-MDRD 21; Glucose 240 mg/dL (80-115); Magnesium 2.1 mg/dL (1.6-2.6); Potassium 3.8 mmol/L (3.5-5.1); Sodium 140 mmol/L (136-145)
[2018-03-12 13:49] LABS: Band 7 % (5-11); Eosinophils 4 % (0-10); Hemoglobin 9.3 g/dL (14.0-18.0); Lymphocytes 12 % (21-51); MDiff Complete? YES; Mean Corpuscular HGB CONC 32.8 g/dL (32.0-36.0); Mean Corpuscular Hemoglobin 29.6 pg (27.0-31.0); Mean Corpuscular Volume 90.5 fL (78.0-98.0); Mean Platelet Volume 8.3 fL (7.4-10.4); Metamyelocyte 1 % (0-0); Monocytes 4 % (0-10); Neutrophil 70 % (42-75); Platelet Count 147 thou/uL (130-400); Reactive Lymphocytes 2 % (0-10); Red Blood Cell (RBC) Count 3.15 mill/uL (4.70-6.10); White Blood Cell (WBC) Count 8.5 thou/uL (4.8-10.8)
--- NOTE | 2018-03-12 14:48 | PDOC.PN ---
- Subjective Encounter Start Date: 03/12/18 Encounter Start Time: 09:15 Patient seen and examined for GI bleeding. No new complaints. No overnight events. Had BM yesterday - "normal" per patient. - Objective Resuscitation Status: Resuscitation Status FULL:Full Resuscitation MAR Reviewed: Yes Vital Signs & Weight: Vital Signs (12 hours) Temp Pulse Resp BP BP Pulse Ox 03/12/18 08:20 70 144/68 H 03/12/18 08:19 144/68 H 03/12/18 08:00 98.3 F 70 16 96 03/12/18 07:33 98.3 F 70 16 144/68 H 96 03/12/18 03:29 98.5 F 94 18 157/75 H 95 Weight Weight 146 lb I&O: 03/11/18 03/12/18 03/13/18 06:59 06:59 06:59 Intake Total 1137 1730 Output Total 1750 1225 Balance -613 505 Result Diagrams: 03/13/18 09:07 03/13/18 09:07 Additional Labs: Accuchecks 03/12/18 03/12/18 03/11/18 10:46 02:23 20:47 POC Glucose 160 H 110 249 H 03/11/18 16:49 POC Glucose 173 H EKG Reviewed by me: Yes (Tele SR, NSVT - 4 beats earlier) Phys Exam - Physical Examination Constitutional: NAD Respiratory: no wheezing, no rhonchi Cardiovascular: RRR, no rub Gastrointestinal: soft, non-tender, no distention, positive bowel sounds Musculoskeletal: no edema Neurological: moves all 4 limbs Dx/Plan - Plan DVT proph w/SCDs IMPRESSION: 1. Gastrointestinal bleeding/Abdominal discomfort with Acute blood loss anemia , status post 1 unit of packed red blood cells at [place]. Cont Protonix IV BID and Octreotide drip HH stable Cont clear liqd Await records from [facility] Cont Atbx for Peritonitis prophylaxis ASA/Warfarin on hold 2. Congestive heart failure, ejection fraction unknown. Await Echo report Hold diuretics due to TSEPHAN 3. NSVT - prob due to Cardiomyopathy Increase Coreg to 12.5 mg BID Patient is refusing Cardiology consultation Await Echo Hold Amlodipine 4. STEPHAN on Chronic kidney disease stage 4 - prob due to diuretics Hold diuretics Avoid nephrotoxic agents. AM labs 5. History of chronic hepatitis C with cirrhosis. 6. Chronic anticoagulation of unclear etiology. Warfarin on hold 7. Coronary artery disease with elevated troponins, probably secondary to demand ischemia. No CP 8. History of arterial thrombectomy of the leg in 12/2017. 9. Diabetes mellitus type 2. Cont sliding scale 10. Hypertension. Cont Hydralazine and Coreg Review of Systems - Review of Systems Respiratory: negative: Cough, Dry, Shortness of Breath, Hemoptysis, SOB with Excertion, Pleuritic Pain, Sputum, Wheezing Cardiovascular: negative: chest pain, palpitations, orthopnea, paroxysmal nocturnal dyspnea, edema, light headedness, other Gastrointestinal: negative: Nausea, Vomiting, Abdominal Pain, Diarrhea, Constipation, Melena, Hematochezia, Other - Medications/Allergies Allergies/Adverse Reactions: Allergies Allergy/AdvReac Type Severity Reaction Status Date / Time No Known Allergies Allergy Verified 03/10/18 11:47 Medications: Current Medications Acetaminophen (Tylenol) 650 mg PO Q8H PRN PRN Reason: Headache/Fever or Pain Last Admin: 03/12/18 06:13 Dose: 650 mg Al Hydroxide/Mg Hydroxide (Maalox) 30 ml PO Q6H PRN PRN Reason: Heartburn or Indigestion Calcium Carbonate (Tums) 1,000 mg PO Q4H PRN PRN Reason: Heartburn or Indigestion Carvedilol (Coreg) 12.5 mg PO BID-[facility] Dextrose/Water (Dextrose 50%) 25 gm SLOW IVP PRN PRN PRN Reason: Hypoglycemia Furosemide (Lasix) 40 mg SLOW IVP 0600,1400 [facility] Last Admin: 03/12/18 05:58 Dose: 40 mg Glucagon (Glucagon) 1 mg IM PRN PRN PRN Reason: Hypoglycemia Hydralazine HCl (Apresoline) 50 mg PO TID [facility] Last Admin: 03/12/18 08:20 Dose: 50 mg Octreotide Acetate 1,250 mcg/ (Sodium Chloride) 251.25 mls @ 5.02 mls/hr IVPB INF [facility] PRN Reason: 25 MCG/HR Last Admin: 03/12/18 04:11 Dose: 251.25 mls Ceftriaxone Sodium 1 gm/ (Sodium Chloride) 100 mls @ 0 mls/hr IVPB Q24HR [facility] Last Admin: 03/12/18 12:57 Dose: 100 mls Dextrose/Water (D5w) 1,000 mls @ 0 mls/hr IV .Q0M PRN; As Directed PRN Reason: Hypoglycemia Insulin Human Regular (Humulin R) 0 units SC .MILD SLIDING SCALE PRN PRN Reason: Mild Correctional Scale Last Admin: 03/10/18 16:19 Dose: 4 unit Insulin Human Regular (Humulin R) 0 units SC .BEDTIME SLIDING SC PRN PRN Reason: Bedtime Correctional Scale Last Admin: 03/10/18 22:57 Dose: 3 unit Lactulose (Lactulose) 10 gm PO DAILY [facility] Last Admin: 03/12/18 08:24 Dose: Not Given Loratadine (Claritin) 10 mg PO DAILY [facility] Last Admin: 03/12/18 08:20 Dose: 10 mg Nitroglycerin (Nitrostat) 0.4 mg PO Q5MIN PRN PRN Reason: Chest Pain Ondansetron HCl (Zofran Odt) 4 mg PO Q6H PRN PRN Reason: Nausea/Vomiting Ondansetron HCl (Zofran) 4 mg IVP Q6H PRN PRN Reason: Nausea/Vomiting Pantoprazole Sodium (Protonix) 40 mg IVP BID [facility] Last Admin: 03/12/18 08:19 Dose: 40 mg Sodium Chloride (Flush - Normal Saline) 10 ml IVF PRN PRN PRN Reason: Saline Flush Last Admin: 03/12/18 08:20 Dose: 10 ml
[2018-03-13] MEDS: Acetaminophen 325 MG TAB PO PRN (04:54)
[2018-03-13] MEDS: Carvedilol 6.25 MG TAB PO SCH ×2 (08:47→16:00)
[2018-03-13] MEDS: Loratadine 10 MG TAB PO SCH (08:48)
[2018-03-13] MEDS: hydrALAZINE 25 MG TAB PO SCH ×2 (08:48→15:57)
[2018-03-13] MEDS: Pantoprazole 40 MG VIAL IVP SCH (08:48)
[2018-03-13 09:38] LABS: #Eosinphils 0.8 thou/uL (0.0-0.7); #Lymphocytes 1.5 thou/uL (1.20-3.40); #Monocytes 0.5 thou/uL (0.11-0.59); #Neutrophils 4.9 thou/uL (1.40-6.50); %Basophils 0.2 % (0.0-1.0); %Lymphocytes 19.2 % (21.0-51.0); %Monocytes 6.8 % (0.0-10.0); %Neutrophils 63.8 % (42.0-75.0); Hemoglobin 9.2 g/dL (14.0-18.0); Mean Corpuscular HGB CONC 32.4 g/dL (32.0-36.0); Mean Corpuscular Hemoglobin 29.1 pg (27.0-31.0); Mean Corpuscular Volume 89.9 fL (78.0-98.0); Mean Platelet Volume 7.8 fL (7.4-10.4); Platelet Count 203 thou/uL (130-400); RBC Distribution Width 15.9 % (11.5-14.5); Red Blood Cell (RBC) Count 3.16 mill/uL (4.70-6.10); White Blood Cell (WBC) Count 7.6 thou/uL (4.8-10.8)
[2018-03-13 09:53] LABS: Lactic Acid 0.8 mmol/L (0.5-2.2)
[2018-03-13 09:57] LABS: Anion Gap 16 mmol/L (10-20); BUN (Urea Nitrogen) 35 mg/dL (8.4-25.7); Calc. Creatinine Clearance 20 mL/min (70-130); Calcium 7.8 mg/dL (7.8-10.44); Carbon Dioxide 18 mmol/L (23-31); Chloride 109 mmol/L (98-107); Estimated GFR-MDRD 22; Glucose 136 mg/dL (80-115); Magnesium 2.6 mg/dL (1.6-2.6); Potassium 3.9 mmol/L (3.5-5.1); Sodium 139 mmol/L (136-145)
[2018-03-13] MEDS: cefTRIAXone\\ROCEPHIN 1 GM in Sodium Chloride 0.9% 100 ML IVPB SCH (12:44)
[2018-03-13] MEDS: Insulin Regular 300 UNITS/3 ML VIAL SC PRN (12:45)
[2018-03-13 15:58] VITALS: BP 134/63
[2018-03-13 16:01] VITALS: TEMP 97.6
--- NOTE | 2018-03-13 20:31 | PDOC.PN ---
- Subjective Encounter Start Date: 03/13/18 Encounter Start Time: 08:30 Patient seen and examined for GI bleed. No new complaints. No overnight events - Objective Resuscitation Status: Resuscitation Status FULL:Full Resuscitation MAR Reviewed: Yes Vital Signs & Weight: Vital Signs (12 hours) Temp Pulse Pulse Pulse Resp BP BP 03/13/18 16:00 134/63 03/13/18 15:57 66 134/63 03/13/18 15:55 97.6 F 68 16 03/13/18 12:25 98.1 F 59 L 16 03/13/18 11:25 63 82 137/65 03/13/18 10:25 03/13/18 08:48 60 163/79 H 03/13/18 08:47 163/79 H BP BP Pulse Ox Pulse Ox Pulse Ox 03/13/18 16:00 03/13/18 15:57 03/13/18 15:55 134/63 97 03/13/18 12:25 126/63 98 03/13/18 11:25 133/66 96 96 03/13/18 10:25 96 03/13/18 08:48 03/13/18 08:47 Weight Weight 151 lb 1.6 oz I&O: 03/12/18 03/13/18 03/14/18 06:59 06:59 06:59 Intake Total 1730 1100 Output Total 1225 1250 Balance 505 -150 Result Diagrams: 03/13/18 09:07 03/13/18 09:07 Additional Labs: Accuchecks 03/13/18 03/13/18 03/13/18 16:21 10:53 06:13 POC Glucose 143 H 222 H 99 03/12/18 20:41 POC Glucose 220 H EKG Reviewed by me: Yes (Tele SR) Phys Exam - Physical Examination Constitutional: NAD Respiratory: no wheezing, no rhonchi Cardiovascular: RRR, no rub Gastrointestinal: soft, non-tender, positive bowel sounds Musculoskeletal: no edema Neurological: moves all 4 limbs Dx/Plan - Plan DVT proph w/SCDs IMPRESSION: 1. Gastrointestinal bleeding/Abdominal discomfort with Acute blood loss anemia , status post 1 unit of packed red blood cells at [place]. Cont Protonix IV BID HH stable Cont clear liqd Await records from [facility] Cont Atbx for Peritonitis prophylaxis ASA/Warfarin on hold Patient refused EGD 2. Chronic systolic heart failure Hold diuretics due to STEPHAN 3. NSVT - prob due to Cardiomyopathy cont Coreg to 12.5 mg BID - no new NSVT Patient is refusing Cardiology consultation Await Echo Hold Amlodipine 4. STEPHAN on Chronic kidney disease stage 4 - prob due to diuretics Hold diuretics Avoid nephrotoxic agents. AM labs 5. History of chronic hepatitis C with cirrhosis. 6. Chronic anticoagulation of unclear etiology. Warfarin on hold 7. Coronary artery disease with elevated troponins, probably secondary to demand ischemia. No CP 8. History of arterial thrombectomy of the leg in 12/2017. 9. Diabetes mellitus type 2. Cont sliding scale 10. Hypertension. Cont Hydralazine and Coreg Will initiate transfer to [facility]. If not possible then patient wants to leave [facility]. Review of Systems - Review of Systems Respiratory: negative: Cough, Dry, Shortness of Breath, Hemoptysis, SOB with Excertion, Pleuritic Pain, Sputum, Wheezing Cardiovascular: negative: chest pain, palpitations, orthopnea, paroxysmal nocturnal dyspnea, edema, light headedness, other - Medications/Allergies Allergies/Adverse Reactions: Allergies Allergy/AdvReac Type Severity Reaction Status Date / Time No Known Allergies Allergy Verified 03/10/18 11:47 Medications: Current Medications Acetaminophen (Tylenol) 650 mg PO Q8H PRN PRN Reason: Headache/Fever or Pain Last Admin: 03/13/18 04:54 Dose: 650 mg Calcium Carbonate (Tums) 1,000 mg PO Q4H PRN PRN Reason: Heartburn or Indigestion Carvedilol (Coreg) 12.5 mg PO BID-[facility] Last Admin: 03/13/18 16:00 Dose: 12.5 mg Dextrose/Water (Dextrose 50%) 25 gm SLOW IVP PRN PRN PRN Reason: Hypoglycemia Glucagon (Glucagon) 1 mg IM PRN PRN PRN Reason: Hypoglycemia Hydralazine HCl (Apresoline) 50 mg PO TID [facility] Last Admin: 03/13/18 15:57 Dose: 50 mg Ceftriaxone Sodium 1 gm/ (Sodium Chloride) 100 mls @ 0 mls/hr IVPB Q24HR [facility] Last Admin: 03/13/18 12:44 Dose: 100 mls Dextrose/Water (D5w) 1,000 mls @ 0 mls/hr IV .Q0M PRN; As Directed PRN Reason: Hypoglycemia Insulin Human Regular (Humulin R) 0 units SC .MILD SLIDING SCALE PRN PRN Reason: Mild Correctional Scale Last Admin: 03/13/18 12:45 Dose: 3 unit Insulin Human Regular (Humulin R) 0 units SC .BEDTIME SLIDING SC PRN PRN Reason: Bedtime Correctional Scale Last Admin: 03/10/18 22:57 Dose: 3 unit Lactulose (Lactulose) 10 gm PO DAILY [facility] Last Admin: 03/13/18 08:48 Dose: Not Given Loratadine (Claritin) 10 mg PO DAILY [facility] Last Admin: 03/13/18 08:48 Dose: 10 mg Nitroglycerin (Nitrostat) 0.4 mg PO Q5MIN PRN PRN Reason: Chest Pain Ondansetron HCl (Zofran Odt) 4 mg PO Q6H PRN PRN Reason: Nausea/Vomiting Ondansetron HCl (Zofran) 4 mg IVP Q6H PRN PRN Reason: Nausea/Vomiting Pantoprazole Sodium (Protonix) 40 mg IVP BID [facility] Last Admin: 03/13/18 08:48 Dose: 40 mg Sodium Chloride (Flush - Normal Saline) 10 ml IVF PRN PRN PRN Reason: Saline Flush Last Admin: 03/12/18 08:20 Dose: 10 ml
--- NOTE | 2018-03-14 17:12 | DIS ---
The patient left against medical advice. DISCHARGE DISPOSITION: The patient is an inmate. BRIEF HOSPITAL COURSE: The patient is a 67-year-old male with chronic hepatitis C with cirrhosis, chronic anticoagulation for unclear reason, congestive heart failure and coronary artery disease, presented to the hospital with abdominal discomfort with black stool of 1 week duration. He initially presented to [facility] and was transferred to this facility since [facility] did not have any bed. Please refer to the history and physical for further details. The patient was admitted to the hospital with the diagnosis of GI bleeding. He received 1 unit of packed red blood cells at [facility]. The patient was seen by Gastroenterology, Dr. Dale. EGD was recommended, however, the patient declined. [facility] records were requested; however, until the time of discharge, we have not received it. The patient signed against medical advice. He also had 4 beats of nonsustained ventricular tachycardia that did not recur after increasing carvedilol dose. Cardiology consultation was recommended ; however, the patient declined. He signed against medical advice. FINAL DIAGNOSES: 1. Gastrointestinal bleeding/abdominal discomfort with acute blood loss anemia requiring one unit of packed red blood cells at [place]. 2. Acute on chronic systolic heart failure - present on admission. 3. Nonsustained ventricular tachycardia, probably secondary to cardiomyopathy. 4. Acute kidney injury on chronic kidney disease stage 4, secondary to diuretics. The patient was found to have acute on chronic systolic heart failure this admission that improved with diuretics. 5. Chronic hepatitis C with cirrhosis. 6. Chronic anticoagulation of unclear reason. 7. Coronary artery disease with elevated troponins, probably secondary to demand ischemia. 8. History of arterial thrombectomy. 9. Diabetes mellitus type 2. 10. Hypertension. Plan of care was discussed with the patient in detail. He stated understanding. Risks not limited to life-threatening complications including was discussed with the patient. He stated understanding. [facility]
--- NOTE | 2018-03-15 10:27 | PQF ---
SAP Reclamation Supervisor Crystal Reports Winform ViewerNOZAC,GATO MACARIO MD [id number] CLINICAL DOCUMENTATION CLARIFICATION FORM: POST DISCHARGE Please exercise your independent, professional judgment in responding to the clarification form. Clinical indicators are provided on the bottom of this form for your review. Thank you. Please check appropriate box(s): Conflicting documentation was noted in the Medical Record, please clarify if patient is being treated/monitored for: [ x] Exacerbation of chronic systolic heart failure [ ] Chronic Systolic heart failure [ ] Other diagnosis [ ] Unable to determine In addition, please specify: Present on Admission (POA): [ x] Yes [ ] No [ ] Unable to determine For continuity of documentation, please document condition throughout progress notes and discharge summary. Thank You. CLINICAL INDICATORS - SIGNS / SYMPTOMS/ LABS documents, "He is in congestive heart failure exacerbation." , BNP 1300 - HP 03/10/18 Discharge Summary documents chronic systolic heart failure Echo 03/11/2018 - EF 25-30%, left atrium mildly dilated, severe mitral regurgitation, mild tricuspid regurgitation CXR 03/10/2018 - Interval development of some bilateral vascular congesion, mild interstitial edema, and small pleural effusions with cardiomegaly since 12/24/17 RISK FACTORS HTN, CAD, CHF, CKD - HP 03/10/2018 TREATMENT Furosemide 40mg slow IV - Progress Note 03/11/2018 (This form is maintained as a part of the permanent medical record) 2014 [employer], [employer]. All Rights Reserved Daly Minaya, CCS, NAIL MACHINE OPERATOR, [email or web address]
--- NOTE | 2018-03-18 20:59 | EKG ---
Test Reason : Blood Pressure : / mmHG Vent. Rate : 075 BPM Atrial Rate : 075 BPM P-R Int : 182 ms QRS Dur : 098 ms QT Int : 436 ms P-R-T Axes : 000 -25 161 degrees QTc Int : 486 ms Normal sinus rhythm Voltage criteria for left ventricular hypertrophy Nonspecific T wave abnormality Prolonged QT Abnormal ECG Confirmed by JUDY APPIAH, SHANTA ([id number]), sports editor VANNA NGUYEN ([id number]) on 03/18/2018 8:59:06 PM Referred By: Confirmed By:SHANTA KIM MD
== END 2018-03-13 20:15 | DRG 377 ==
LOC: ERS 06:41 → 2NO 11:35
PROVIDERS: ADMIT Internal Medicine; ATTEND Internal Medicine
DX: K92.2 Gastrointestinal hemorrhage, unspecified (principal); I50.23 Acute on chronic systolic (congestive) heart failure; D62 Acute posthemorrhagic anemia; N18.4 Chronic kidney disease, stage 4 (severe); I13.0 Hypertensive heart and chronic kidney disease with heart failure and stage 1 through stage 4 chronic kidney disease, or unspecified chronic kidney disease; R18.8 Other ascites; I47.2 Ventricular tachycardia; N17.9 Acute kidney failure, unspecified; I24.8 Other forms of acute ischemic heart disease; K74.60 Unspecified cirrhosis of liver; B18.2 Chronic viral hepatitis C; I25.10 Atherosclerotic heart disease of native coronary artery without angina pectoris; E11.22 Type 2 diabetes mellitus with diabetic chronic kidney disease; Z79.01 Long term (current) use of anticoagulants
CPT/HCPCS: 36415; 36416; 71045; 80048; 80053; 81003; 81015; 82550; 82553; 83605; 83690; 83735; 83880; 84100; 84484; 85025; 85610; 85730; 86850; 86900; 86901; 93005; 93306; 93798; 94760; 96361; 96365; 96376; C9113; J0696; J1815; J1940; J2354; J7050

== ENCOUNTER 2018-04-01 05:53 | Inpatient (IN) | payer OTHER ==
[2018-04-01 06:37] LABS: #Eosinphils 0.3 thou/uL (0.0-0.7); #Lymphocytes 1.3 thou/uL (1.20-3.40); #Monocytes 0.7 thou/uL (0.11-0.59); #Neutrophils 5.6 thou/uL (1.40-6.50); %Basophils 0.1 % (0.0-1.0); %Eosinophils 3.5 % (0.0-10.0); %Lymphocytes 16.3 % (21.0-51.0); %Monocytes 8.9 % (0.0-10.0); %Neutrophils 71.3 % (42.0-75.0); Mean Corpuscular HGB CONC 31.8 g/dL (32.0-36.0); Mean Corpuscular Hemoglobin 25.9 pg (27.0-31.0); Mean Corpuscular Volume 81.2 fL (78.0-98.0); Mean Platelet Volume 7.7 fL (7.4-10.4); Platelet Count 274 thou/uL (130-400); RBC Distribution Width 17.1 % (11.5-14.5); Red Blood Cell (RBC) Count 1.94 mill/uL (4.70-6.10); White Blood Cell (WBC) Count 7.9 thou/uL (4.8-10.8)
[2018-04-01 06:46] LABS: ALT (SGPT) 25 U/L (8-55); AST (SGOT) 25 U/L (5-34); Albumin 3.4 g/dL (3.4-4.8); Alkaline Phosphatase 70 U/L (40-150); Anion Gap 17 mmol/L (10-20); BUN (Urea Nitrogen) 55 mg/dL (8.4-25.7); Bilirubin, Total 0.4 mg/dL (0.2-1.2); Calc. Creatinine Clearance 0 mL/min (70-130); Calcium 7.1 mg/dL (7.8-10.44); Carbon Dioxide 18 mmol/L (23-31); Chloride 108 mmol/L (98-107); Estimated GFR-MDRD 26; Globulin 2.7 g/dL (2.4-3.5); Glucose 258 mg/dL (80-115); Lipase 60 U/L (8-78); Potassium 3.5 mmol/L (3.5-5.1); Protein, Total 6.1 g/dL (5.8-8.1); Sodium 139 mmol/L (136-145)
[2018-04-01 06:59] LABS: INR-International Normal Ratio 3.6; Prothrombin Time 35.5 SEC (12.0-14.7)
[2018-04-01] MEDS ORDERED: Ondansetron HCl/PF 4 MG/2 ML Vial IVP PRN ×2 (09:03→17:46)
[2018-04-01] MEDS ORDERED: Acetaminophen 325 MG TAB PO PRN (09:03)
[2018-04-01] MEDS ORDERED: Ondansetron ODT 4 MG TAB SL PRN (09:03)
[2018-04-01] MEDS: Sodium Chloride 0.9% 1,000 ML IV SCH ×4 (13:48→20:40)
[2018-04-01] MEDS ORDERED: Acetaminophen 500 MG TAB PO PRN (17:46)
[2018-04-01] MEDS ORDERED: Dextrose 50% Abboject 50 ML SYRINGE SLOW IVP PRN (17:46)
[2018-04-01] MEDS ORDERED: Dextrose 5% in Water 1,000 ML IV PRN (17:46)
[2018-04-01] MEDS ORDERED: cloNIDine 0.1 MG TAB PO PRN (17:46)
[2018-04-01] MEDS ORDERED: hydrALAZINE 20 MG/ML VIAL SLOW IVP PRN (17:46)
[2018-04-01] MEDS ORDERED: Ondansetron ODT 4 MG TAB PO PRN (17:46)
[2018-04-01] MEDS ORDERED: HumaLOG 300 UNITS/3 ML VIAL SC PRN ×2 (17:46)
[2018-04-01] MEDS ORDERED: Phytonadione 10 MG in Sodium Chloride 0.9% 50 ML IVPB SCH (18:15)
[2018-04-01] MEDS: Pantoprazole 40 MG VIAL IVP SCH (20:37)
[2018-04-01] MEDS: NPH, Human Insulin Isophane 300 UNIT/3 ML VIAL SC SCH (20:38)
[2018-04-01] MEDS: Carvedilol 6.25 MG TAB PO SCH (20:38)
[2018-04-01] MEDS: hydrALAZINE 25 MG TAB PO SCH (20:38)
--- NOTE | 2018-04-01 22:55 | HP ---
DATE OF ADMISSION: 04/01/2018 PRIMARY CARE PHYSICIAN: [place] [employer]. CHIEF COMPLAINT: Blood in the stool. HISTORY OF PRESENT ILLNESS: This is a 67-year-old -[place] male who presents to [facility] with complaints of abdominal pain, cramping, and black stools x4 days. Patient with a known history of prior GI bleeding with approximately 3 prior visits to healthcare facilities for evaluation of GI bleeding. Patient apparently was admitted to [facility] in December and January 2018 as well as [facility] in 02/2018. Patient states he is on chronic Coumadin therapy for a lower ext remity thrombus. Patient apparently was offered endoscopy in the recent past but refused to go throu gh the procedure. Patient denies any chronic alcohol abuse or history of varices, but does have a hi story of hepatitis C. Patient initially described the pain as cramping in nature, generalized and ra eko the pain as 7/10. Patient has noticed black stools over the last 4 days. Patient is unsure if h e takes chronic proton pump inhibitor. Patient does admit that he underwent recent AV fistula placem ent in the right upper extremity. Apparently in preparation for hemodialysis, which he has not begun . In the emergency room, patient underwent CBC evaluation showing a hemoglobin of 5. Last hemoglobi n on record 03/13/2018 showed 9.2. Patient was typed and crossed and received 2 units of packed red blood cells and was transferred to the medical floor for further evaluation. PAST MEDICAL HISTORY: 1. Recurrent GI bleeds. 2. Chronic hepatitis C with question of cirrhosis. 3. Chronic kidney disease, stage 4. 4. Hypertension. 5. Coronary artery disease. 6. Right lower extremity arterial thrombosis. 7. Carpal tunnel syndrome. 8. Chronic Coumadin therapy secondary to right lower extremity thrombus. 9. Diabetes mellitus, type 2. PAST SURGICAL HISTORY: 1. Status post kidney biopsy. 2. Status post right upper extremity AV fistula placement. 3. Status post arterial thrombectomy to the right lower extremity. CURRENT MEDICATIONS: 1. Amlodipine 10 mg p.o. daily. 2. Enteric-coated aspirin 81 mg p.o. daily. 3. Lipitor 10 mg p.o. at bedtime. 4. Coreg 6.25 mg p.o. b.i.d. 5. Lasix 40 mg p.o. daily. 6. Hydralazine 50 mg p.o. t.i.d. 7. Novolin 5 units subcutaneously b.i.d. 8. Novolin regular sliding scale t.i.d. with meals. 9. Lactulose 10 grams p.o. p.r.n. 10. Lisinopril 10 mg p.o. daily. 11. Loratadine 10 mg p.o. daily. 12. Omeprazole 20 mg p.o. daily. 13. Coumadin 2.5 mg p.o. at bedtime 4 times per week. ALLERGIES: No known drug allergies. FAMILY HISTORY: No inheritable diseases per patient report. SOCIAL HISTORY: Patient incarcerated with [place] [facility] [employer]. . No current al cohol, tobacco, or illicit drug use. REVIEW OF SYSTEMS: The following complete review of systems was otherwise negative, except as stated per HPI: Constitutional: Weight loss or gain, ability to conduct usual activities. Skin: Rash, i tching. Eyes: Double vision, pain. ENT/Mouth: Nose bleeding, neck stiffness, pain, tenderness. C ardiovascular: Palpitations, dyspnea on exertion, orthopnea. Respiratory: Shortness of breath, whe ezing, cough, hemoptysis, fever, or night sweats. Gastrointestinal: Poor appetite, abdominal pain, heartburn, nausea, vomiting, constipation, or diarrhea. Genitourinary: Urgency, frequency, dysuria, nocturia. Musculoskeletal: Pain, swelling. Neurologic/Psychiatric: Anxiety, depression. Allergy /Immunologic: Skin rash, bleeding tendency. PHYSICAL EXAMINATION: VITAL SIGNS: Currently blood pressure 153/72, pulse 69, respiratory rate 18, temperature 98.9 degree s Fahrenheit, O2 saturation 94% on room air. GENERAL APPEARANCE: This is a 67-year-old -[place] male, alert and oriented x3, pleasant, co nversant, in no acute distress. HEENT: Pupils are equal, round, and reactive to light and accommodation. Extraocular muscles are in tact. No scleral icterus, no conjunctival injection. Nares patent. OP is clear. NECK: Supple, no cervical adenopathy, no thyromegaly, no carotid bruits, no JVD appreciated. Cervic al spine with full active and passive range of motion. No meningeal signs appreciated. CHEST: Lungs are clear to auscultation bilaterally. CARDIOVASCULAR: S1, S2, with 2-3/6 systolic ejection murmur throughout the chest wall. ABDOMEN: Rounded, soft, nontender, nondistended. Bowel sounds are positive in all four quadrants. No hepatosplenomegaly, no abdominal bruits, no rebound or guarding appreciated. EXTREMITIES: Right upper extremity with AV fistula in place. Palpable thrill. Lower extremities wi thout asymmetric edema noted. Pulses palpable distally at the dorsalis pedis, posterior tibial, and popliteal arteries bilaterally. Capillary refill less than 2 seconds. NEUROLOGIC: Cranial nerves II-XII are grossly intact. No focal or lateralizing signs appreciated. PERTINENT LABORATORY AND X-RAY FINDINGS: Sodium 139, potassium 3.5, chloride 108, CO2 of 18, BUN 55, creatinine 2.96, estimated GFR 26, glucose 258, calcium 7.1. LFTs within normal limits. Lipase 60. CBC showed a white blood cell count 7.9, hemoglobin 5, hematocrit 16, platelet count 274 with mireya l differential. PT 35.5, INR 3.6. Stool Hemoccult positive x1 on 04/01/2018. ASSESSMENT AND PLAN: 1. Acute gastrointestinal bleed. Suspect upper source given melena. We will continue intravenous n ormal saline 100 mL per hour. Protonix 40 mg IV q.12 hours. Hold all anticoagulation and non-steroi mario antiinflammatory drugs. Consult GI service for further evaluation and consideration for endoscop y. Clear liquids. 2. Acute blood loss anemia secondary to gastrointestinal bleed. Status post 2 units of packed red b lood cells. We will continue serial H&H q.6 hours. Repeat CBC in the a.m. Avoid anticoagulation an d non-steroidal antiinflammatory drugs. Hold aspirin. 3. Chronic kidney disease, stage 4. Avoid nephrotoxic agents and contrast media. Serial creatinine monitoring. Consider Nephrology consultation if renal function declines. 4. Supratherapeutic INR. Hold Coumadin. Repeat INR in the a.m. Vitamin K 10 mg IV x1 dose now. 5. Diabetes mellitus, type 2. Insulin sliding scale for reflexive coverage. Accu-Cheks before meal s and at bedtime. ADA diet when tolerating p.o. intake. 6. Prophylaxis. Sequential compression devices while in bed. Protonix 40 mg IV q.12 hours. 7. Code status is FULL. Surrogate medical decision maker is [place] [facility].
[2018-04-01] MEDS: cefTRIAXone\\ROCEPHIN 1 GM in Sodium Chloride 0.9% 100 ML IVPB SCH (23:24)
[2018-04-02 00:22] LABS: Hemoglobin 7.5 g/dL (14.0-18.0)
--- NOTE | 2018-04-02 03:04 | CON ---
DATE OF CONSULTATION: 04/01/2018 REASON FOR CONSULTATION: GI bleed and history of cirrhosis. HISTORY OF PRESENT ILLNESS: Mr. Hernandez is a 67-year-old, -[place] male, who I have been aske d to see with regard to diagnosis of cirrhosis and GI bleeding. Patient was noted, he has a history of cirrhosis dating back many years related to hepatitis C. He has received care through the [facility] and [facility]. First at this hospital in December of this year when he was transferred for hypotension. He was transferred to [facility] for some melena at that time, he came with a hemoglobin of 4.6. Intermit tently, he has been here in the emergency room, and he was back again in 02/2018 again with black tar ry stools for 5 days. On that admission, he came with a hemoglobin of 10. [facility] a hemoglobin of 5.2. Actually reviewing the records, that was the 02/03 visit, was the second visit here when his hemoglobin was in the range of 5. Again, at the time of admissio n, it seems the patient was transferred to [place]. On 03/10/2018, the patient was readmitted to [facility], there was no room in [place], so he stayed, he refused further endoscopy at that time and had reported to Dr. Dale, he have been scoped with no findings there. In talking with the tanner ent tonight, he states about 4 days ago, he began to have dark stools again and began to feel weak an d had a little bit of crampy periumbilical pain. He reports anywhere from one stool a day to black t arry stool about three times a day. Ultimately, he felt he was getting weak again and knew that he n eeded a transfusion requesting and brought to the hospital. Here, he was found to have a hemoglobin of 5, platelet count of 274 and INR of 3.6, BUN and creatinine of 55 and 2.9, which is right around h is baseline. Although last time here, his BUN was 35, the first time here was 115. His liver functi on test actually pretty good with an albumin of 3.4, protein of 6.1. Lipase is 60. AST and ALT of 2 5, alkaline phosphatase of 70. The patient tells me that he had upper endoscopy and a lower endoscopy and a capsule endoscopy in [facility], which did not find a source of bleeding. Other significant factors are that he is on Coumadin. He reports for a blood clot in his leg. One o f the emergency room note indicates he had a thrombectomy in December of this year. Also, he has renal in sufficiency and had a biopsy in [place] for that. He has had a dialysis catheter placed, but he recinos s not been started on dialysis. His cirrhosis has been presumptively hepatitis C, which has not been treated at this point in time. Previous imaging studies: CAT scans have been without contrast, not been overly helpful except for showing a bit of fluid in the gallbladder fossa. There has been no c omment on the appearance of the cirrhotic liver, splenomegaly. There has been no ascites seen either . PAST MEDICAL HISTORY: 1. Hepatitis C, previous notes here indicate cirrhosis, although it is not clear that is the case ba sed on his labs. 2. Chronic renal insufficiency. 3. Hypertension. 4. Congestive heart failure. 5. Carpal tunnel. 6. Chronic anticoagulation. He states for a clot in his leg. It is unclear if this was from arteri al clot or venous clot. He has a history of a thrombectomy on 12/25/2017. PAST SURGICAL HISTORY: Kidney biopsy, AV graft placed in the right arm, arterial thrombectomy of the leg in 12/2017. This is reported, and I do not have his records to document that. ALLERGIES: None known. MEDICATIONS: Include omeprazole, lisinopril, hydralazine, warfarin 2.5 at bedtime, insulin sli ding scale, NPH 5 b.i.d., Lasix 40 a day, carvedilol 6.25 a day, atorvastatin 10 a day, aspirin 81 a day, and amlodipine daily. Here, he is on acetaminophen p.r.n., amlodipine, Coreg, clonidine, Lasix 40 daily, glucagon, hydralazine, insulin sliding scale b.i.d. Zofran, Protonix, normal saline of 100. FAMILY HISTORY: Brother from liver cancer, but that was related to alcohol abuse. He denies an y known liver problems or colon cancer in the family. Denies alcohol, drugs, or tobacco. He is inca rcerated presently. REVIEW OF SYSTEMS: Negative for shortness of breath or dyspnea on exertion except for when he gets a nemic. He denies any problems with swelling recently. He has not had any problem with confusion, en cephalopathy as far as he knows. PHYSICAL EXAMINATION: VITAL SIGNS: Temperature is 98, pulse 73, blood pressure 150/64. GENERAL: Patient is resting in bed. He is alert and oriented to person, place, and time, he is in n o distress. He is shackled, is polite. LUNGS: Clear. There is no JVD. HEART: Regular rate and rhythm without clicks or murmurs. ABDOMEN: Soft, nontender without hepatosplenomegaly. Oropharynx and mouth is normal. Abdomen is pr otuberant. There is no overt shifting dullness or fluid wave. EXTREMITIES: No clubbing, cyanosis, or edema. Review of treatment this far since in the emergency room, vital signs were actually pretty stable. Kristen baig has been given 2 units of blood this admission, he was given 2 on 12/24/2017 and two on 02/03/2018 and 02/04/2018 admission. He has been given Protonix as well. Echocardiogram on 0 03/12/2018 showed ejection fraction of 25% to 30%, severe mitral regurgitation. Labs have been previo usly similar. LABORATORY AND X-RAY FINDINGS: Labs here white count 7.9, hemoglobin 5 on admission, MCV 81, platele t count 247. His platelets have always been well over 100 with a lowest being 147 on admission here. His INR is 3.6 today. BUN and creatinine 55 and 2.9. Sodium 139, potassium 3.5, chloride 108, bic arbonate 18, anion gap 13, glucose 258. Last fingerstick at 8:30 of 216, bilirubin 0.4, AST and ALT are 25 and 25, alkaline phosphatase is 70. Albumin 3.4, protein 6.1, lipase 60. ASSESSMENT: 1. This is a 67-year-old gentleman with hepatitis C and had a diagnosis of cirrhosis, although he recinos s normal-appearing liver on imaging studies. He, however, is on diuretics. He has no ascites by exa m. No peripheral edema on my exam. He has not been treated for hepatitis C. 2. Gastrointestinal bleeding. He has had recurrent bleeding. He has again presented with a hemoglo bin around 5. He has a history of melena seems to be of upper GI tract etiology with elevated BUN in dicating probable small bowel reabsorption of heme, although he has had extensive evaluation in [facility] with no diagnosis made. 3. Heart failure with significant mitral regurgitation. 4. Diabetes. 5. Anticoagulation of unclear etiology. RECOMMENDATIONS: 1. He is to have a hemoglobin check now and see where his hemoglobin is, like to get him at least ab ove 7, and we should monitor his H&H q.6 hours. 2. Given 2 units of FFP to reverse his anticoagulation in light of the bleeding. 3. I have recommended the patient, we proceeded with an upper endoscopy and possible small bowel ent eroscopy with colonoscope tomorrow to see if we can identify a source of bleeding, this does not appe ar to be portal hypertensive bleeding. 4. If all of this is nondiagnostic, may be transferred back to [place] if the bed is available. 5. I would to go and place him on empiric antibiotics with concern for possible gastrointestinal ble eding in the setting of possible cirrhosis, although again, there are no overt signs of portal hypert ension, his albumin is pretty well preserved.
[2018-04-02 04:30] LABS: INR-International Normal Ratio 1.4; Prothrombin Time 17.1 SEC (12.0-14.7)
[2018-04-02 04:47] LABS: ALT (SGPT) 26 U/L (8-55); AST (SGOT) 22 U/L (5-34); Albumin 3.5 g/dL (3.4-4.8); Alkaline Phosphatase 72 U/L (40-150); Anion Gap 13 mmol/L (10-20); BUN (Urea Nitrogen) 51 mg/dL (8.4-25.7); Bilirubin, Total 0.7 mg/dL (0.2-1.2); Calc. Creatinine Clearance 0 mL/min (70-130); Calcium 7.3 mg/dL (7.8-10.44); Carbon Dioxide 20 mmol/L (23-31); Chloride 114 mmol/L (98-107); Estimated GFR-MDRD 27; Glucose 98 mg/dL (80-115); Potassium 3.3 mmol/L (3.5-5.1); Protein, Total 6.5 g/dL (5.8-8.1); Sodium 144 mmol/L (136-145)
[2018-04-02 04:48] LABS: Eosinophils 5 % (0-10); Hemoglobin 7.4 g/dL (14.0-18.0); Lymphocytes 13 % (21-51); MDiff Complete? YES; Mean Corpuscular HGB CONC 32.6 g/dL (32.0-36.0); Mean Corpuscular Hemoglobin 27.3 pg (27.0-31.0); Mean Corpuscular Volume 83.6 fL (78.0-98.0); Mean Platelet Volume 7.5 fL (7.4-10.4); Monocytes 8 % (0-10); Neutrophil 74 % (42-75); PLT Morphology Comment Appears Adequate; Platelet Count 276 thou/uL (130-400); RBC Distribution Width 16.7 % (11.5-14.5); White Blood Cell (WBC) Count 10.4 thou/uL (4.8-10.8)
[2018-04-02] MEDS: Carvedilol 6.25 MG TAB PO SCH ×2 (06:01→20:17)
[2018-04-02 10:30] VITALS: BMI 26.6
--- NOTE | 2018-04-02 11:13 | PDOC.PN ---
- Subjective Encounter Start Date: 04/02/18 Encounter Start Time: 11:00 Subjective: f/u for GI bleeding s/p 2u PRBC's on chronic anticoagulation. Endoscopy -: today showing small duodenal bulb erosion. - Objective Resuscitation Status: Resuscitation Status FULL:Full Resuscitation MAR Reviewed: Yes Vital Signs & Weight: Vital Signs (12 hours) Temp Pulse Pulse Resp BP BP BP 04/02/18 07:49 98.6 F 76 18 04/02/18 07:37 98.6 F 76 18 148/78 H 04/02/18 06:01 145/63 H 04/02/18 03:15 98.5 F 70 20 140/68 04/02/18 03:01 98.2 F 74 20 147/70 H 04/02/18 02:53 98.5 F 70 20 149/78 H 04/02/18 00:52 98.5 F 60 20 155/67 H 04/02/18 00:10 98.2 F 78 18 169/73 H Pulse Ox 04/02/18 07:49 98 04/02/18 07:37 98 04/02/18 06:01 04/02/18 03:15 100 04/02/18 03:01 93 L 04/02/18 02:53 04/02/18 00:52 04/02/18 00:10 Weight Weight 160 lb 1.6 oz I&O: 04/01/18 04/02/18 04/03/18 06:59 06:59 06:59 Intake Total 2530 Output Total 550 Balance 1980 Result Diagrams: 04/02/18 13:44 04/02/18 03:52 Additional Labs: Accuchecks 04/02/18 04/01/18 04/01/18 04:09 20:36 16:24 POC Glucose 114 H 216 H 171 H 04/01/18 11:39 POC Glucose 121 H Laboratory Tests 04/01/18 04/01/18 04/01/18 06:05 06:05 06:05 Hgb 5.0 L* INR 3.6 Carbon Dioxide 18 L BUN 55 H Creatinine 2.96 H 04/02/18 04/02/18 00:05 03:52 Hgb 7.5 L INR 1.4 Carbon Dioxide BUN Creatinine Phys Exam - Physical Examination Constitutional: NAD HEENT: PERRLA, sclera anicteric, oral pharynx no lesions Neck: no nodes, no JVD, supple, full ROM Respiratory: no wheezing, no rales, no rhonchi, clear to auscultation bilateral II/ ELIESER RUSB Cardiovascular: RRR, no rub, gallop Gastrointestinal: soft, non-tender, no distention, positive bowel sounds Musculoskeletal: no edema, pulses present Neurological: normal sensation, moves all 4 limbs Psychiatric: normal affect, A&O x 3 Skin: normal turgor, cap refill <2 seconds Dx/Plan (1) Acute GI bleeding Code(s): K92.2 - GASTROINTESTINAL HEMORRHAGE, UNSPECIFIED Status: Acute Comment: Endoscopy today, hold all anticoagulation, serial H/H, IVF's (2) Acute blood loss anemia Code(s): D62 - ACUTE POSTHEMORRHAGIC ANEMIA Status: Acute Comment: s/p 2u PRBC's, serial H/H, see #1, Protonix 40mg po daily (3) CKD (chronic kidney disease), stage IV Code(s): N18.4 - CHRONIC KIDNEY DISEASE, STAGE 4 (SEVERE) Status: Chronic Comment: Avoid nephrotoxic meds and limit contrast exposure (4) Supratherapeutic INR Code(s): R79.1 - ABNORMAL COAGULATION PROFILE Status: Acute Comment: Hold Coumadin, improved in last 24h (5) DM II (diabetes mellitus, type II), controlled Code(s): E11.9 - TYPE 2 DIABETES MELLITUS WITHOUT COMPLICATIONS Status: Acute Comment: Continue NPH insulin, ISS, ADA when taking po - Plan continue antibiotics, social media director, DVT proph w/SCDs Stable currently -: Continue Protonix -: Saline Lock IVF -: Hold anticoagulation -: AM lab: BMP, H/H, PT/INR *
[2018-04-02] MEDS: hydrALAZINE 25 MG TAB PO SCH ×3 (12:25→20:17)
[2018-04-02] MEDS: Amlodipine 10 MG TAB PO SCH (12:26)
[2018-04-02] MEDS: Loratadine 10 MG TAB PO SCH (12:26)
[2018-04-02] MEDS: Furosemide 40 MG TAB PO SCH (12:26)
[2018-04-02 13:51] LABS: Hemoglobin 7.2 g/dL (14.0-18.0)
[2018-04-02] MEDS: Pantoprazole 40 MG VIAL IVP SCH (14:25)
[2018-04-02] MEDS ORDERED: PROPOFOL 200 MG/20 ML VIAL ONE (15:28)
--- NOTE | 2018-04-02 17:09 | OP ---
PREPROCEDURE DIAGNOSES: 1. Recurrent episodes of melena with recurrent anemia at this time with a hemoglobin of 5 on admission. 2. Previous evaluations at [facility] in [place] with what the patient reports as upper and lower endoscopies and capsule endoscopy of small bowel, which he reports were nondiagnostic. 3. Chronic anticoagulation with Coumadin for some type of peripheral vascular clotting. It is unclear if this was arterial or venous based on the patient's description. Again, those records are not available. 4. INR reversed from 3.6-1.4 today, hemoglobin increased from 5-7.4 today after transfusion. POSTPROCEDURE DIAGNOSES: 1. Esophagogastroduodenoscopy, normal esophagus. 2. Normal stomach with good visualization of mucosa. No evidence of AV malformations or punctate lesions. This is suggestive of varices. There are no signs of portal hypertensive gastropathy. 3. Duodenum notable for 2 erosions about 5 mm in size, white-based, and bland. These would not typically be significant bleeding sites, I do not think, but with anticoagulation they may be. 4. Enteroscopy was performed to the proximal jejunum with no lesions seen. Only clear yellow bile was noted in the upper gastrointestinal tract. RECOMMENDATIONS: 1. Advance diet. 2. Hold anticoagulation. 3. Continue PPI b.i.d. 4. Obtain records from [facility] from previous evaluations or consider transferring the patient there. PROCEDURE IN DETAIL: After the patient was informed of the risks, benefits, possible complications of endoscopy including perforation, bleeding, reaction to medication and aspiration, informed consent was obtained. The patient brought to the endoscopy suite where he was sedated in a gradual fashion. Once he was comfortable, a bite block was placed in the incisor orifice. The endoscope was advanced to the esophagus, stomach and second and third portions of duodenum and slowly removed. The esophagus, stomach, and duodenum were normal except for the 2 erosions in the duodenal bulb. These were white-based and about 5 mm in size at the apex of the bulb. There were no stigmata of recent bleeding. Retroflexed views in the stomach were normal. At this time, the scope was removed. A colonoscope was then used to advance through the bite block into the esophagus, stomach, duodenum to the fourth part of the duodenum and into the jejunum. It is unclear how we were able to get far, we were able to get down to the jejunum with reduction and careful manipulation. There were no bleeding sites identified in the proximal small bowel. There were no stigmata of recent bleeding and there was no old blood identified. The scope was removed. The patient tolerated the procedure well with no complications. GRANT
[2018-04-02] MEDS: Sodium Chloride 0.9% 1,000 ML IV SCH (17:12)
[2018-04-02] MEDS: NPH, Human Insulin Isophane 300 UNIT/3 ML VIAL SC SCH (20:18)
[2018-04-02] MEDS: cefTRIAXone\\ROCEPHIN 1 GM in Sodium Chloride 0.9% 100 ML IVPB SCH (23:13)
[2018-04-03 05:52] LABS: INR-International Normal Ratio 1.4
[2018-04-03 06:01] LABS: Calcium 7.5 mg/dL (7.8-10.44); Chloride 113 mmol/L (98-107); Potassium 3.3 mmol/L (3.5-5.1); Sodium 143 mmol/L (136-145)
[2018-04-03 06:02] LABS: Glucose 102 mg/dL (80-115)
[2018-04-03 06:03] LABS: Anion Gap 16 mmol/L (10-20); Carbon Dioxide 17 mmol/L (23-31)
[2018-04-03 06:05] LABS: Calc. Creatinine Clearance 25 mL/min (70-130); Estimated GFR-MDRD 26
[2018-04-03 06:06] LABS: BUN (Urea Nitrogen) 45 mg/dL (8.4-25.7)
[2018-04-03] MEDS: NPH, Human Insulin Isophane 300 UNIT/3 ML VIAL SC SCH ×2 (08:17→21:45)
[2018-04-03] MEDS: hydrALAZINE 25 MG TAB PO SCH ×3 (08:26→21:37)
[2018-04-03] MEDS: Carvedilol 6.25 MG TAB PO SCH ×2 (08:27→21:38)
[2018-04-03] MEDS: Furosemide 40 MG TAB PO SCH (08:27)
[2018-04-03] MEDS: Loratadine 10 MG TAB PO SCH (08:27)
[2018-04-03] MEDS: Amlodipine 10 MG TAB PO SCH (11:12)
--- NOTE | 2018-04-03 18:12 | PDOC.PN ---
- Subjective Encounter Start Date: 04/03/18 Encounter Start Time: 18:00 Subjective: f/u for GI bleed with EGD showing 2 small duodenal erosions that -: were hemostatic. Continues on Protonix. c/o cough. - Objective Resuscitation Status: Resuscitation Status FULL:Full Resuscitation MAR Reviewed: Yes Vital Signs & Weight: Vital Signs (12 hours) Temp Pulse Resp BP BP Pulse Ox 04/03/18 16:28 68 116/63 04/03/18 11:12 67 155/67 H 04/03/18 08:27 155/67 H 04/03/18 08:26 64 155/67 H 04/03/18 08:04 98.6 F 64 20 155/67 H 95 04/03/18 08:00 98.6 F 64 20 95 Weight Weight 160 lb 1.6 oz I&O: 04/02/18 04/03/18 04/04/18 06:59 06:59 06:59 Intake Total 2530 2020 420 Output Total 550 450 Balance 1980 1570 420 Result Diagrams: 04/02/18 13:44 04/03/18 05:02 Additional Labs: Accuchecks 04/03/18 04/03/18 04/02/18 16:33 11:39 20:14 POC Glucose 152 H 144 H 157 H Laboratory Tests 04/01/18 04/01/18 04/01/18 06:05 06:05 06:05 Hgb 5.0 L* INR 3.6 Potassium Carbon Dioxide 18 L BUN 55 H Creatinine 2.96 H 04/02/18 04/02/18 04/02/18 00:05 03:52 03:52 Hgb 7.5 L INR 1.4 Potassium 3.3 L Carbon Dioxide BUN Creatinine 2.83 H 04/02/18 04/03/18 03:52 05:02 Hgb 7.4 L INR 1.4 Potassium Carbon Dioxide BUN Creatinine Phys Exam - Physical Examination Constitutional: NAD HEENT: PERRLA, sclera anicteric, oral pharynx no lesions Neck: no nodes, no JVD, supple, full ROM + rhonchi bilat, diminished in bases Cardiovascular: RRR, no significant murmur, no rub, gallop Gastrointestinal: soft, non-tender, no distention, positive bowel sounds Musculoskeletal: no edema, pulses present Neurological: normal sensation, moves all 4 limbs Psychiatric: A&O x 3 Skin: no rash, normal turgor, cap refill <2 seconds Dx/Plan (1) Acute GI bleeding Code(s): K92.2 - GASTROINTESTINAL HEMORRHAGE, UNSPECIFIED Status: Acute Comment: Etiology unclear,hold all anticoagulation, serial H/H, continue Protonix 40mg BID (2) Acute blood loss anemia Code(s): D62 - ACUTE POSTHEMORRHAGIC ANEMIA Status: Acute Comment: s/p 2u PRBC's, serial H/H, see #1, Protonix 40mg po BID (3) CKD (chronic kidney disease), stage IV Code(s): N18.4 - CHRONIC KIDNEY DISEASE, STAGE 4 (SEVERE) Status: Chronic Comment: Avoid nephrotoxic meds and limit contrast exposure (4) Supratherapeutic INR Code(s): R79.1 - ABNORMAL COAGULATION PROFILE Status: Acute Comment: Hold Coumadin, improved in last 24h (5) DM II (diabetes mellitus, type II), controlled Code(s): E11.9 - TYPE 2 DIABETES MELLITUS WITHOUT COMPLICATIONS Status: Acute Comment: Continue NPH insulin, ISS, ADA when taking po - Plan DVT proph w/SCDs Stable overall -: Continue Protonix 40mg BID -: Duonebs q4h -: Robitussin 10ml po q4h prn -: AM lab: BMP, CBC * Likely back to [facility] in 24h
[2018-04-03] MEDS: Guaifenesin DM 100-10/5 ML UDCUP PO PRN (21:35)
[2018-04-03] MEDS: cefTRIAXone\\ROCEPHIN 1 GM in Sodium Chloride 0.9% 100 ML IVPB SCH (22:44)
[2018-04-04 05:14] LABS: INR-International Normal Ratio 1.4; Prothrombin Time 17.7 SEC (12.0-14.7)
[2018-04-04 05:23] LABS: Anion Gap 17 mmol/L (10-20); BUN (Urea Nitrogen) 50 mg/dL (8.4-25.7); Calc. Creatinine Clearance 23 mL/min (70-130); Calcium 7.6 mg/dL (7.8-10.44); Carbon Dioxide 15 mmol/L (23-31); Chloride 115 mmol/L (98-107); Estimated GFR-MDRD 24; Glucose 110 mg/dL (80-115); Potassium 3.7 mmol/L (3.5-5.1); Sodium 143 mmol/L (136-145)
[2018-04-04 05:25] LABS: Eosinophils 2 % (0-10); Hemoglobin 7.1 g/dL (14.0-18.0); Lymphocytes 18 % (21-51); MDiff Complete? YES; Mean Corpuscular HGB CONC 31.2 g/dL (32.0-36.0); Mean Corpuscular Hemoglobin 26.4 pg (27.0-31.0); Mean Corpuscular Volume 84.7 fL (78.0-98.0); Mean Platelet Volume 8.1 fL (7.4-10.4); Monocytes 4 % (0-10); Neutrophil 76 % (42-75); PLT Morphology Comment Appears Adequate; Platelet Count 250 thou/uL (130-400); RBC Distribution Width 17.7 % (11.5-14.5); Red Blood Cell (RBC) Count 2.69 mill/uL (4.70-6.10); White Blood Cell (WBC) Count 10.2 thou/uL (4.8-10.8)
[2018-04-04] MEDS: Guaifenesin DM 100-10/5 ML UDCUP PO PRN (05:47)
[2018-04-04 07:41] VITALS: TEMP 98.1
[2018-04-04] MEDS: Amlodipine 10 MG TAB PO SCH (08:06)
[2018-04-04] MEDS: NPH, Human Insulin Isophane 300 UNIT/3 ML VIAL SC SCH (08:06)
[2018-04-04] MEDS: Loratadine 10 MG TAB PO SCH (08:06)
[2018-04-04] MEDS: hydrALAZINE 25 MG TAB PO SCH ×2 (08:07→15:04)
[2018-04-04] MEDS: Furosemide 40 MG TAB PO SCH (08:07)
[2018-04-04] MEDS: Carvedilol 6.25 MG TAB PO SCH (08:07)
[2018-04-04] MEDS ORDERED: Lisinopril 10 MG TAB PO SCH (09:00)
[2018-04-04 15:06] VITALS: BP 126/67
--- NOTE | 2018-04-04 20:03 | DIS ---
DATE OF ADMISSION: 04/01/2018 DATE OF DISCHARGE: 04/04/2018 DISCHARGE DIAGNOSES: 1. Acute gastrointestinal bleeding. Exact etiology unclear, likely multifactorial. 2. Duodenal erosions without hemorrhage by EGD. 3. Acute blood loss anemia, status post 2 units of packed red blood cells. 4. Supratherapeutic INR secondary to Coumadin. 5. Chronic kidney disease, stage 4. 6. Diabetes mellitus type 2, insulin requiring. CONSULTATIONS: Dr. Manrique with GI Service. PERTINENT LAB AND X-RAY FINDINGS: Creatinine ranged between 2.83-3.16, estimated GFR ranging between 24-27. LFTs within normal limits. Lipase 60. CBC showed a hemoglobin ranging between 5.0-7.5. IN R ranged between 1.4-3.6. Stool Hemoccult dated 04/01/2018, positive x1. EGD dated 04/02/2018 showe d 2 erosions approximately 5 mm in diameter in the duodenum. HOSPITAL COURSE: Patient was admitted to the medical floor after initially presenting with melena an d associated hemoglobin of 5.0. The patient was typed and crossed and transfused 2 units of packed r ed blood cells as well as IV fluids. The patient was also noted on chronic Coumadin therapy with an initial INR of 3.6. The patient was discontinued on Coumadin therapy and given 2 units of fresh froz en plasma. The patient underwent EGD evaluation by the GI Service after packed red blood cell transf usions showing two small erosions in the duodenum that were not actively bleeding. Current recommend ations are to continue Protonix 40 mg b.i.d. and to hold Coumadin. The patient was serially monitore d with overall stable hemoglobin values ranging between 7.1-7.5. Suspected multifactorial GI bleedin g. Overall, the patient remained clinically stable during the hospital course. On exam and the tanner ent at the time of discharge and discussed followup instructions. The patient overall clinically sta ble and ready for discharge 04/04/2018. DISCHARGE MEDICATIONS: 1. Amlodipine 10 mg 1 tab p.o. daily. 2. Enteric-coated aspirin 81 mg 1 tab p.o. daily. 3. Lipitor 10 mg p.o. at bedtime. 4. Carvedilol 6.25 mg p.o. b.i.d. 5. Lasix 40 mg p.o. daily. 6. Hydralazine 50 mg p.o. t.i.d. 7. NPH insulin 5 units subcutaneously b.i.d. 8. Novolin R t.i.d. with meals. 9. Lactulose 10 grams p.o. daily p.r.n. 10. Lisinopril 10 mg p.o. daily. 11. Loratadine 10 mg p.o. daily. 12. Protonix 40 mg p.o. b.i.d. 13. Coumadin 2.5 mg p.o. at bedtime 4 times per week. Hold until 04/06/2018. FOLLOWUP: Patient will follow up with [facility] for primary care. CONDITION ON DISCHARGE: Stable. ACTIVITY: Ad taj. DIET: ADA and heart healthy. CODE STATUS: FULL. SPECIAL INSTRUCTIONS: Recommend repeat CBC on 04/06/2018. DISPOSITION: Discharge to [facility] on 04/04/2018.
== END 2018-04-04 16:07 | DRG 378 ==
LOC: ERS 05:53 → T4-A 07:55
PROVIDERS: ADMIT Family Medicine; ATTEND Family Medicine
PROC: 30233N1 Transfusion of Nonautologous Red Blood Cells into Peripheral Vein, Percutaneous Approach (ICD-10-PCS; 2018-04-01)
PROC: 30233K1 Transfusion of Nonautologous Frozen Plasma into Peripheral Vein, Percutaneous Approach (ICD-10-PCS; 2018-04-01)
PROC: 0DJ08ZZ Inspection of Upper Intestinal Tract, Via Natural or Artificial Opening Endoscopic (ICD-10-PCS; principal; 2018-04-02)
DX: K92.2 Gastrointestinal hemorrhage, unspecified (principal); D62 Acute posthemorrhagic anemia; N18.4 Chronic kidney disease, stage 4 (severe); I13.0 Hypertensive heart and chronic kidney disease with heart failure and stage 1 through stage 4 chronic kidney disease, or unspecified chronic kidney disease; E11.22 Type 2 diabetes mellitus with diabetic chronic kidney disease; B18.2 Chronic viral hepatitis C; I50.9 Heart failure, unspecified; K26.9 Duodenal ulcer, unspecified as acute or chronic, without hemorrhage or perforation; K74.60 Unspecified cirrhosis of liver; I25.10 Atherosclerotic heart disease of native coronary artery without angina pectoris; R79.1 Abnormal coagulation profile; Z86.718 Personal history of other venous thrombosis and embolism; Z79.01 Long term (current) use of anticoagulants; Z79.4 Long term (current) use of insulin; Z79.899 Other long term (current) drug therapy
CPT/HCPCS: 36415; 36416; 36430; 80048; 80053; 82274; 83690; 85007; 85025; 85027; 85610; 86850; 86900; 86901; 94640; C9113; J0696; J1815; J2704; J3430; J7050; J7620; P9016; P9059